=== PATIENT | female | born 1970 | race Caucasian/White ===

== ENCOUNTER 2020-07-24 13:21 | Emergency (ER) | payer BC, SELFPAY ==
--- NOTE | ~2020-07-24 | US_ITS ---
EXAMINATION: US ABDOMEN LIMITED CLINICAL INFORMATION: Right upper quadrant pain. Evaluate for acute cholecystitis.. COMPARISON: None TECHNIQUE: Real-time imaging of the right upper quadrant abdominal viscera. FINDINGS: PANCREAS: Not well visualized due to bowel gas. LIVER: The liver is normal in size. The liver contour is normal. Liver echotexture is slightly reduced. No focal hepatic lesion. There is no intrahepatic biliary duct dilatation seen. GALLBLADDER: The gallbladder is slightly distended measuring 10.5 x 4 x 4.8 cm in dimension. No gallstones are seen. The gallbladder wall does not appear thickened measuring 0.3 cm. No gallbladder wall edema or pericholecystic fluid is seen. The special procedures technologist reports the patient is tender over the gallbladder. COMMON BILE DUCT: Normal in caliber measuring 0.6 cm in diameter. RIGHT KIDNEY: Normal. No hydronephrosis. No renal calculi or focal parenchymal lesions. The kidney measures 10.5 cm in maximum dimension. FREE FLUID: None. US/US abdomen limited IMPRESSION: Slightly distended gallbladder. No gallstone seen. The special procedures technologist reports the patient is tender over the gallbladder. If there is clinical suspicion of acalculous cholecystitis, HIDA scan would be recommended. Slightly echogenic liver probably representing fatty infiltration.
--- NOTE | ~2020-07-24 | CT_ITS ---
EXAMINATION: CT ABDOMEN AND PELVIS WITHOUT CONTRAST CLINICAL INFORMATION: Right flank hematuria. COMPARISON: Ultrasound abdomen 07/24/2020 TECHNIQUE: Multidetector volumetric imaging was performed from the superior aspect of the liver through the pubic symphysis. Sagittal and coronal reformatted images were obtained on the technologist's workstation. This CT examination was performed using dose optimization techniques as appropriate, variously including the following: *Automated exposure control *Adjustment of mA and/or kV according to patient size (this includes techniques or standardized protocols for targeted exams where dose is matched to indication/reason for exam; i.e. extremities or head) *Use of iterative reconstruction technique DLP: 752 mGy-cm FINDINGS: LUNG BASES: The visualized lung bases are unremarkable. LIVER, GALLBLADDER, AND BILIARY TREE: The liver is normal in size, shape, and attenuation. There is a 1.7 cm cyst hepatic lobe. No additional lesions seen. There is no intrahepatic ductal dilatation. The gallbladder is distended with a 7 mm radiopaque dependent radiopaque gallstone. No wall thickening seen. No pericholecystic fluid collection. PANCREAS: Unremarkable. SPLEEN: Unremarkable. ADRENAL GLANDS: Unremarkable. KIDNEYS AND URETERS: The kidneys are normal in size, shape, and attenuation. No hydronephrosis, hydroureter, or calculi seen. No perinephric stranding. BLADDER: Unremarkable. GASTROINTESTINAL TRACT: There is scattered stool and gas seen throughout the colon without distention. The small bowel loops and appendix appears normal. The stomach is nondistended. ABDOMINAL WALL: No significant hernia is appreciated. LYMPH NODES: Normal. VASCULAR: Unremarkable. PELVIC VISCERA: The uterus is midline. No adnexal mass or free fluid seen. There are bilateral small lung inguinal lymph nodes visualized. The largest lymph node right inguinal region measuring 1.4 x 1.3 cm OSSEOUS STRUCTURES: There is mild degenerative changes with vacuum disc phenomena at T12-L1 and T10-T11 disc level. Anterior superior endplate osteophyte is seen at L1 vertebra. CT/CT abdomen pelvis wo IV con IMPRESSION: Cholelithiasis without wall thickening. No gallstone was seen on ultrasound earlier today. Mild constipation. Normal appendix.
[2020-07-24 13:50] VITALS: BP 189/91; PULSE 88; RESP 18; TEMP 36.8; O2SAT 98; BMI 41.3
--- NOTE | 2020-07-24 16:04 | ECG_ITS ---
Test Reason : ABDOMINAL PAIN Blood Pressure : / mmHG Vent. Rate : 070 BPM Atrial Rate : 070 BPM P-R Int : 158 ms QRS Dur : 070 ms QT Int : 438 ms P-R-T Axes : 040 036 018 degrees QTc Int : 473 ms Normal sinus rhythm Possible Left atrial enlargement Borderline ECG No previous ECGs available Referred By: Traci Shields Electronically Signed By:ALEXA JOHNSON MD
--- NOTE | 2020-07-24 16:16 | ED_ITS ---
HPI - Abdominal Pain General Chief Complaint: Abdominal Pain Stated Complaint: ABD PAIN Time Seen by Provider: 07/24/20 15:56 Source: patient Mode of arrival: ambulatory Limitations: no limitations History of Present Illness HPI narrative: 50-year-old female here with complaints of right upper abdominal pain intermittent for the last 2 weeks also complaining of some epigastric pain which is worsened with eating. Having some nausea but denies vomiting. Pain radiates to the right flank and right shoulder at times. No diarrhea. No urinary symptoms, fevers or chills. No shortness of breath or chest pain. Sta rted Prilosec to for presumed reflux with continued pain. Does have a history of using p.r.n. Motrin quite frequently at home for chronic shoulder pain. Related Data Previous Rx's Medication Instructions Recorded ondansetron 4 mg PO Q6H PRN #10 tab 07/24/20 oxycodone 5 mg PO Q6H PRN #10 tab 07/24/20 Allergies Allergy/AdvReac Type Severity Reaction Status Date / Time No Known Allergies Allergy Verified 07/24/20 16:04 Review of Systems Review of Systems Yes all other systems are reviewed and are negative Constitutional: Reports no additional constitutional complaints, Denies body ache(s), Denies chills, Denies fever(s), Denies headache(s) and Denies weakness Eyes: Reports no additional eye complaints and Denies change in vision Reports system reviewed and no additional complaints, except as documented, Denies dizziness, Denies headache(s), Denies nasal congestion, Denies nasal discharge and Denies neck pain Cardiovascular: Reports no additional cardiovascular complaints, Denies chest pain, Denies leg edema and Denies dyspnea Respiratory: Reports no additional respiratory complaints, Denies cough and Denies dyspnea Gastrointestinal: Reports no additional gastrointestinal complaints, Reports abdominal pain, Denies diarrhea, Reports nausea and Denies vomiting Genitourinary: Reports no additional female genitourinary complaints and Denies urinary incontinence Musculoskeletal: Reports no additional musculoskeletal complaints, Reports back pain, Denies arthralgias, Denies joint swelling, Denies neck pain, Denies numbness and Denies tingling Skin/Breast: Reports system reviewed and no additional complaints, except as docu and Denies rash Reports system reviewed and no additional complaints, except as documented, Denies Abnormal speech present, Denies dizziness, Denies headache(s), Denies nu mbness, Denies tingling and Denies weakness Physical Exam Vital Signs: Vital Signs: Last Vital Signs Temp 97.9 F 07/24/20 19:50 Pulse 69 07/24/20 19:50 Resp 20 07/24/20 19:50 BP 132/97 H 07/24/20 19:50 Pulse Ox 97 07/24/20 19:50 Body Mass Index 41.3 Const: General: cooperative, healthy appearing, comfortable and no acute distress Orientation/consciousness: patient oriented x3 Limitations: no limitations HENMT: Head: Yes normal to inspection Ears: hearing grossly normal bilaterally General nose exam: Normal external nose present Face and sinus : Yes normal facial exam Mouth: Normal oral and palatal mucosa present Throat: Yes posterior oropharynx normal Eyes: General: appearance normal, both eyes and all related structures Pupils: Equal, round and reactive pupils present Neck: Neck: Yes normal visual inspection Chest: Chest palpation & inspection: normal inspection of the chest Resp: Effort & Inspection: normal respiratory effort Auscultation: clear to auscultation bilaterally Cardio: Rate: regular rate Rhythm: regular rhythm Peripheral pulses: Peripheral pulses 2+ throughout GI: Inspection: Yes normal to inspection Palpation (GI): Soft to palpation, Tenderness to palpation present (GI) (Moderate right upper quadrant and epigastric tenderness) with no rebound tenderness and no guarding Ausculta tion: normal bowel sounds : General: Yes no CVA tenderness Back/Spine/Pelvis: Back: no CVA tenderness Thoracic/Lumbar Spine: thoracic and lumbar spine normal to inspection Skin: General skin exam: no rashes or lesions noted Neuro: General: patient oriented x3, no focal motor deficits and normal sensation to monofilament Cranial nerves: Yes Equal, round and reactive pupils present Cognition (Neuro): normal cognition Speech: No Abnormal speech present Gait exam (Neuro): Normal gait present Motor exam (neuro): 5/5 motor strength present throughout Extrem: General: Yes normal to inspection, Yes no pedal edema and Yes no calf tenderness Course Course Course Narrative: 50-year-old female here with complaints of intermittent right upper quadrant pain with radiation to the right back and shoulder with associated nausea and epigastric pain for the last 2 weeks. Started a PPI with continued symptoms. On exam does have some tenderness in the right upper quadrant epigastric area. No overt CVA tenderness. No urinary symptoms are reported. Will check labs, UA, abdominal ultrasound. Will give IV morphine and Zofran and reassessed. 1800-ultrasound shows slightly distended gallbladder. No gallstones seen. Con tinued pain with urine that shows microscopic hematuria. Will do CT abdomen and pelvis 2014-CT shows a distended gallbladder with a 7 mm radiopaque gallstones. No wall thickening seen no pericholecystic fluid. No evidence of acute cholecystitis. The patient's pain is well controlled. She has no vomiting is tolerating p.o.. Labs including LFTs normal. I reviewed the findings with her. Recommend low-fat diet and follow-up with the surgery. Reviewed worrisome signs and symptoms of when to return to the emergency department such as severe abdominal pain, to a more vomiting episodes, fever. Comfortable discharge home. MDM - Abdominal Pain MDM Narrative Medical decision making narrative: Cholecystitis Differential Diagnosis Differential diagnosis: Likely calculus of kidney, gastritis and pancreatitis Medical Records Attestation: I reviewed the patient's medical records. Lab Data Attestation: I reviewed the patient's lab results. Result diagrams: 07/24/20 16:21 07/24/20 16:21 Labs: Lab Results 07/24/20 07/24/20 07/24/20 Range/Units 16:21 16:21 16:21 WBC 11.4 H (4.8-10.8) X10*3/uL RBC 4.43 (4.20-5.50) X10*6/uL Hgb 13.2 (12.0-16.0) g/dl Hct 39.8 (37-47) % MCV 89.8 (80-98) fL MCH 29.8 (27.0-33.0) pg MCHC 33.2 (31.0-35.0) g/dl RDW 11.9 (11.0-16.0) % Plt Count 210 (160-400) X10*3/uL MPV 11.8 (9.4-12.3) fL Immature Gran % (Auto) 0.2 (0.0-0.4) % Neut % (Auto) 56.6 (45-73) % Lymph % (Auto) 31.2 (20-40) % Young % (Auto) 7.7 (2-11) % Eos % (Auto) 3.5 (0-4) % Baso % (Auto) 0.8 (0-2) % Lymph # (Auto) 3.5 (1.2-4.9) X10*3/uL Young # (Auto) 0.9 (0.1-1.2) X10*3/uL Eos # (Auto) 0.4 (0.0-0.4) X10*3/uL Baso # (Auto) 0.1 (0.0-0.2) X10*3/uL Abs Immat Gran (auto) 0.02 (0.00-0.03) X10*3/uL Absolute Neuts (auto) 6.4 (2.0-8.3) X10*3/uL Absolute Nucleated RBC 0.000 (0.0-0.012) X10*3/uL Nucleated RBC % (auto) 0.0 (0.0-0.2) /100WBC Sodium 142 (135-145) mmol/L Potassium 4.5 (3.3-5.1) mmol/L Chloride 107 (96-108) mmol/L Carbon Dioxide 28 (22-29) mmol/L Anion Gap 12 (12-20) BUN 19 H (9-16) mg/dL Creatinine 1.12 (0.5-1.4) mg/dL Estim Creat Clear Calc 59.2 Estimated GFR 51 Random Glucose 88 (60-115) mg/dL Calcium 9.4 (8.4-10.2) mg/dL Total Bilirubin 0.5 (0.0-1.0) mg/dL Direct Bilirubin < 0.2 (0.0-0.5) mg/dL AST 21 (5-31) U/L ALT 21 (0-31) U/L Alkaline Phosphatase 71 (39-117) U/L Total Protein 6.8 (6.5-8.0) g/dL Albumin 4.3 (3.5-5.0) g/dL Lipase 22 (8-78) U/L Urine Color YELLOW Urine Appearance CLEAR Urine pH 7.0 (5.0-8.0) Ur Specific [place] 1.020 (1.005-1.025) Urine Protein NEG (NEG-TRACE) MG/DL Urine Glucose (UA) NEG (NEG) MG/DL Urine Ketones NEG (NEG) MG/DL Urine Blood 1+ H (NEG) Urine Nitrite NEG (NEG) Ur Leukocyte Esterase NEG (NEG) Urine RBC 10-14 H (0) /HPF Urine WBC 0-2 (0-4) /HPF Ur Squamous Epith Cells 2+ /LPF Urine Bacteria 1+ /LPF Imaging Data US - abdomen: Attestation: I personally reviewed and interpreted this imaging study as follows: Radiologist's impression: IMPRESSION: Slightly distended gallbladder. No gallstone seen. The pathology technologist reports the patient is tender over the gallbladder. If there is clinical suspicion of acalculous cholecystitis, HIDA scan would be recommended. Slightly echogenic liver probably representing fatty infiltration. CT scan - abdomen: Attestation: I personally reviewed and interpreted this imaging study as follows: Radiologist's impression: EXAMINATION: CT ABDOMEN AND PELVIS WITHOUT CONTRAST CLINICAL INFORMATION: Right flank hematuria. COMPARISON: Ultrasound abdomen 07/24/2020 TECHNIQUE: Multidetector volumetric imaging was performed from the superior aspect of the liver through the pubic symphysis. Sagittal and coronal reformatted images were obtained on the technologist's workstation. This CT examination was performed using dose optimization techniques as appropriate, variously including the following: *Automated exposure control *Adjustment of mA and/or kV according to patient size (this includes techniques or standardized protocols for targeted exams where dose is matched to indication/reason for exam; i.e. extremities or head) *Use of iterative reconstruction technique DLP: 752 mGy-cm FINDINGS: LUNG BASES: The visualized lung bases are unremarkable. LIVER, GALLBLADDER, AND BILIARY TREE: The liver is normal in size, shape, and attenuation. There is a 1.7 cm cyst hepatic lobe. No additional lesions seen. There is no intrahepatic ductal dilatation. The gallbladder is distended with a 7 mm radiopaque dependent radiopaque gallstone. No wall thickening seen. No pericholecystic fluid collection. PANCREAS: Unremarkable. SPLEEN: Unremarkable. ADRENAL GLANDS: Unremarkable. KIDNEYS AND URETERS: The kidneys are normal in size, shape, and attenuation. No hydronephrosis, hydroureter, or calculi seen. No perinephric stranding. BLADDER: Unremarkable. GASTROINTESTINAL TRACT: There is scattered stool and gas seen throughout the colon without distention. The small bowel loops and appendix appears normal. The stomach is nondistended. ABDOMINAL WALL: No significant hernia is appreciated. LYMPH NODES: Normal. VASCULAR: Unremarkable. PELVIC VISCERA: The uterus is midline. No adnexal mass or free fluid seen. There are bilateral small lung inguinal lymph nodes visualized. The largest lymph node right inguinal region measuring 1.4 x 1.3 cm OSSEOUS STRUCTURES: There is mild degenerative changes with vacuum disc phenomena at T12-L1 and T10-T11 disc level. Anterior superior endplate osteophyte is seen at L1 vertebra. CT/CT abdomen pelvis wo con IMPRESSION: Cholelithiasis without wall thickening. No gallstone was seen on ultrasound earlier today. Mild constipation. Normal appendix. Discharge Plan Discharge Clinical Impression: Cholelithiases Patient Disposition: Home, Self-Care Instructions: Gallstones (ED) Additional Instructions: Very low-fat diet Follow-up with surgery tomorrow or the next day Prescriptions: New oxycodone 5 mg tablet 5 mg PO Q6H PRN (Reason: pain) Qty: 10 RF: 0 ondansetron 4 mg tablet,disintegrating 4 mg PO Q6H PRN (Reason: nausea and vomiting) Qty: 10 RF: 0 Referrals: David Hoffman MD [Physician] - 2 days Interventions: ED Discharge Assessment Last Done: 07/24/20 20:04 Discharge Date/Time: 07/24/20 20:07 [facility] Past Medical History Attestation statement: The following information was validated with the patient. Source: old records reviewed and nursing notes reviewed Social History Social History Alcohol intake: never Patient Tobacco Use Status: Never used Tobacco Use of substances other than those prescribed or required for medical reasons: No Advance Directives: No Advance Directives Information Provided: No Patient : No
[2020-07-24 16:24] VITALS: RESP 16
[2020-07-24] MEDS: Morphine Sulfate 2 MG/ML CARTRIDGE IVPUSH (16:24)
[2020-07-24] MEDS: ondansetron HCL 4 MG/2 ML VIAL IVPUSH (16:24)
[2020-07-24 16:26] LABS: MANUAL DIFF FLAG NO
[2020-07-24 16:27] LABS: Basophils Absolute Auto 0.1 X10*3/uL (0.0-0.2); Basophils Percent Auto 0.8 % (0-2); Eosinophils Absolute Auto 0.4 X10*3/uL (0.0-0.4); Eosinophils Percent Auto 3.5 % (0-4); Hematocrit 39.8 % (37-47); Hemoglobin 13.2 g/dl (12.0-16.0); Imm Gran Abs Auto 0.02 X10*3/uL (0.00-0.03); Imm Gran Pct Auto 0.2 % (0.0-0.4); Lymphocytes Absolute Auto 3.5 X10*3/uL (1.2-4.9); Lymphocytes Percent Auto 31.2 % (20-40); Mean Corpuscular HGB Conc 33.2 g/dl (31.0-35.0); Mean Corpuscular Hemoglobin 29.8 pg (27.0-33.0); Mean Corpuscular Volume 89.8 fL (80-98); Mean Platelet Volume 11.8 fL (9.4-12.3); Monocytes Absolute Auto 0.9 X10*3/uL (0.1-1.2); Monocytes Percent Auto 7.7 % (2-11); Neutrophils Absolute Auto 6.4 X10*3/uL (2.0-8.3); Neutrophils Percent Auto 56.6 % (45-73); Platelet Count 210 X10*3/uL (160-400); Red Blood Count 4.43 X10*6/uL (4.20-5.50); Red Cell Distribution Width 11.9 % (11.0-16.0); White Blood Count 11.4 X10*3/uL (4.8-10.8)
[2020-07-24 16:34] LABS: Glucose Urine UA NEG (NEG); Leukocyte Esterase Urine NEG (NEG); Nitrite Urine NEG (NEG); Urine Blood 1+ (NEG); Urine Ketones NEG (NEG); Urine Protein NEG (NEG-TRACE)
[2020-07-24 16:35] LABS: Appearance Urine CLEAR; Color Urine YELLOW
[2020-07-24 16:51] LABS: Bacteria Urine 1+ /LPF; Squamous Epithelial Cell Urine 2+ /LPF; WBC Urine 0-2 /HPF (0-4)
[2020-07-24 17:04] LABS: Alanine Aminotransferase 21 U/L (0-31); Albumin Level 4.3 g/dL (3.5-5.0); Alkaline Phosphatase 71 U/L (39-117); Anion Gap 12 (12-20); Aspartate Amino Transferase 21 U/L (5-31); Bilirubin Direct < 0.2 mg/dL (0.0-0.5); Bilirubin Total 0.5 mg/dL (0.0-1.0); Blood Urea Nitrogen 19 mg/dL (9-16); Calcium 9.4 mg/dL (8.4-10.2); Carbon Dioxide 28 mmol/L (22-29); Chloride 107 mmol/L (96-108); Creatinine Clr Calc Pharmacy 59.2; Estimated Glomerular Filt Rate 51; Glucose Random 88 mg/dL (60-115); Lipase 22 U/L (8-78); Potassium 4.5 mmol/L (3.3-5.1); Sodium 142 mmol/L (135-145); Total Protein 6.8 g/dL (6.5-8.0)
[2020-07-24 17:32] VITALS: RESP 18
[2020-07-24] MEDS: Morphine Sulfate 4 MG/ML CARTRIDGE IVPUSH (17:32)
[2020-07-24 19:50] VITALS: BP 132/97; PULSE 69; RESP 20; TEMP 36.6; O2SAT 97
== END 2020-07-24 20:07 | disposition home or self-care (01) ==
PROVIDERS: Nurse Practitioner Family; Emergency Provider Emergency Medicine; PCP Internal Medicine
DX: K80.20 Calculus of gallbladder without cholecystitis without obstruction (principal); R10.13 Epigastric pain
CPT/HCPCS: 36415; 74176; 76705; 80048; 80076; 81001; 83690; 85025; 93005; 96374; 96375; 96376; 99285; J2270; J2405

== ENCOUNTER → 2020-08-02 14:14 | Outpatient (BNVA) | payer BC, SELFPAY | PROVIDERS: PCP Internal Medicine; Visit Provider Surgery ==

== ENCOUNTER 2020-08-29 06:25 | Emergency (ER) | payer BC, SELFPAY ==
--- NOTE | 2020-08-29 | ECG_ITS ---
Test Reason : CHEST PAIN Blood Pressure : / mmHG Vent. Rate : 090 BPM Atrial Rate : 090 BPM P-R Int : 150 ms QRS Dur : 072 ms QT Int : 392 ms P-R-T Axes : 034 030 042 degrees QTc Int : 479 ms Sinus rhythm with frequent Premature ventricular complexes Possible Left atrial enlargement Borderline ECG When compared with ECG of 24-JUL-2020 18:00, Premature ventricular complexes are now Present Referred By: Generic ED Physician Electronically Signed By:Cooper Patiño
--- NOTE | ~2020-08-29 | XR_ITS ---
EXAMINATION: XR CHEST CLINICAL INFORMATION: Chest pain. COMPARISON: None TECHNIQUE: Frontal view of the chest was obtained. FINDINGS: The lungs are well-expanded and clear. The heart size and pulmonary vascularity is normal. No gross bony abnormality seen. XR/XR chest 1V IMPRESSION: Unremarkable chest exam.
[2020-08-29 06:41] VITALS: BP 147/62; PULSE 54; RESP 18; TEMP 36.9; O2SAT 96; BMI 41.5
--- NOTE | 2020-08-29 06:55 | ED.ARRPALP ---
HPI - Arrhythmia/Palpitations General Chief Complaint: ETOH/Substance Use Stated Complaint: severe chest pain, SoB Time Seen by Provider: 08/29/20 06:53 Source: patient Mode of arrival: ambulatory Limitations: no limitations History of Present Illness HPI narrative: 50 yo female was to have surgery back in July - found to be in bigeminy in preop has been seeing [facility] cardiology since then to find out the cause of her PVCs - finished her holter monitor today, has not had ECHO or sress test yet, this AM around 5 developed L sided pleuritic shoulder pain and dizziness - she took 2 aspirin and came to the hospital currently feels much better, is on no home medications complaint: rapid heart beat, heart racing and palpitations Onset (ago): hour(s) (2) Duration: now resolved Severity: moderate Context: occurred during rest Arrhythmia history: other (frequent PVCs) Associated symptoms: chest pain, shortness of breath and near-syncope Related Data Previous Rx's Medication Instructions Recorded ondansetron 4 mg PO Q6H PRN #10 tab 07/24/20 oxycodone 5 mg PO Q6H PRN #10 tab 07/24/20 Allergies Allergy/AdvReac Type Severity Reaction Status Date / Time No Known Allergies Allergy Verified 08/02/20 14:30 Review of Systems Review of Systems: Constitutional : No Weight loss, No Fever, No Chills ENT/Mouth : No sore throat, No Rhinorrhea Eyes: No Eye Pain, No Swelling Cardiovascular : pos Chest Pain, pos SOB, no Dyspnea on Exertion, No Orthopnea, No Edema, pos Palpitations Respiratory : No Cough, No Sputum Gastrointestinal : pos Nausea, No Vomiting, No Diarrhea, No abdominal Pain, No Hematochezia, No Melena Genitourinary : No Dysuria, No Urinary Frequency Musculoskeletal : No joint pain, No Myalgias, No Joint Swelling Skin : No Skin Lesions, No rash Neuro : No Weakness, No Numbness, pos Dizziness, No Headache Psych : No Anxiety/Panic, No Depression Heme/Lymph: No Bruising, No Lymphadenopathy Endocrine : No Polyuria, No Polydipsia All other systems reviewed and are negative PMFSH Past Medical History Attestation statement: The following information was validated with the patient. Medical History Gallstones Morbid obesity Surgical History History of arthroplasty of right shoulder History of bunionectomy History of eye surgery Family History Family History (Updated 08/02/20 @ 15:45 by Rudy Gibson RN) Unknown Unknown family medical history Social History Social History Alcohol intake: never Patient Tobacco Use Status: Former Tobacco user Advance Directives: Yes Advance Directives Information Provided: Yes Advance Directives on File: No Patient : No Physical Exam Vital Signs: Vital Signs: Last Vital Signs Temp 98.4 F 08/29/20 06:41 Pulse 54 08/29/20 06:41 Resp 18 08/29/20 06:41 BP 147/62 H 08/29/20 06:41 Pulse Ox 96 08/29/20 06:41 Body Mass Index 41.5 Appearance: Alert. Oriented X3. No acute distress. Eyes: Pupils equal, round and reactive to light. ENT: Pharynx normal. Neck: Normal inspection. Neck supple. CVS: Normal heart rate and rhythm. Pulses normal. Respiratory: No respiratory distress. Breath sounds normal. Abdomen: Soft and non-tender. Skin: Skin warm and dry. Normal skin color. Normal skin turgor. Extremities: No lower extremity edema. No calf ttp Neuro: Oriented X 3. No motor deficit. No sensory deficit. Course Course Course Narrative: ddimer under the upper limit of normal workup negative in the ED has planned ECHO and stress test with her [facility] creative services designer - will hold bblocker as at this time she is intermittently perfusing the PVCs and her HR is in the 70s MDM - Arrhythmia/Palpitations MDM Narrative Medical decision making narrative: 50 yo female was to have surgery back in July - found to be in bigeminy in preop has been seeing [facility] cardiology since then to find out the cause of her PVCs - finished her holter monitor today, has not had ECHO or sress test yet, this AM around 5 developed L sided pleuritic shoulder pain and dizziness at this time will need troponin x 2, ddimer, CXR and observation states they did not start her on bblocker until a cause for her PVCs was found but she is quite symptomatic from them and might benefit from low dose bblocker her heart score is 3 Lab Data Result diagrams: 08/29/20 07:11 08/29/20 07:11 Labs: Lab Results 08/29/20 08/29/20 08/29/20 Range/Units 07:11 07:11 07:11 WBC 9.5 (4.8-10.8) X10*3/uL RBC 4.50 (4.20-5.50) X10*6/uL Hgb 13.3 (12.0-16.0) g/dl Hct 40.2 (37-47) % MCV 89.3 (80-98) fL MCH 29.6 (27.0-33.0) pg MCHC 33.1 (31.0-35.0) g/dl RDW 11.6 (11.0-16.0) % Plt Count 200 (160-400) X10*3/uL MPV 11.5 (9.4-12.3) fL Immature Gran % (Auto) 0.4 (0.0-0.4) % Neut % (Auto) 59.4 (45-73) % Lymph % (Auto) 26.1 (20-40) % [place] % (Auto) 9.5 (2-11) % Eos % (Auto) 4.1 H (0-4) % Baso % (Auto) 0.5 (0-2) % Lymph # (Auto) 2.5 (1.2-4.9) X10*3/uL [place] # (Auto) 0.9 (0.1-1.2) X10*3/uL Eos # (Auto) 0.4 (0.0-0.4) X10*3/uL Baso # (Auto) 0.1 (0.0-0.2) X10*3/uL Abs Immat Gran (auto) 0.04 H (0.00-0.03) X10*3/uL Absolute Neuts (auto) 5.7 (2.0-8.3) X10*3/uL Absolute Nucleated RBC 0.000 (0.0-0.012) X10*3/uL Nucleated RBC % (auto) 0.0 (0.0-0.2) /100WBC D-Dimer 222 NG/ML Sodium 141 (135-145) mmol/L Potassium 4.9 (3.3-5.1) mmol/L Chloride 107 (96-108) mmol/L Carbon Dioxide 27 (22-29) mmol/L Anion Gap 12 (12-20) BUN 24 H (9-16) mg/dL Creatinine 0.89 (0.5-1.4) mg/dL Estim Creat Clear Calc 74.7 Estimated GFR > 60 Random Glucose 118 H (60-115) mg/dL Calcium 9.6 (8.4-10.2) mg/dL Magnesium 2.0 (1.6-2.6) mg/dL Total Bilirubin 0.4 (0.0-1.0) mg/dL Direct Bilirubin 0.2 (0.0-0.5) mg/dL AST 20 (5-31) U/L ALT 26 (0-31) U/L Alkaline Phosphatase 60 (39-117) U/L Troponin I High Sens (<3.5-17.0) ng/L Total Protein 6.8 (6.5-8.0) g/dL Albumin 4.3 (3.5-5.0) g/dL Lipase 24 (8-78) U/L 08/29/20 08/29/20 Range/Units 07:11 09:45 WBC (4.8-10.8) X10*3/uL RBC (4.20-5.50) X10*6/uL Hgb (12.0-16.0) g/dl Hct (37-47) % MCV (80-98) fL MCH (27.0-33.0) pg MCHC (31.0-35.0) g/dl RDW (11.0-16.0) % Plt Count (160-400) X10*3/uL MPV (9.4-12.3) fL Immature Gran % (Auto) (0.0-0.4) % Neut % (Auto) (45-73) % Lymph % (Auto) (20-40) % [place] % (Auto) (2-11) % Eos % (Auto) (0-4) % Baso % (Auto) (0-2) % Lymph # (Auto) (1.2-4.9) X10*3/uL [place] # (Auto) (0.1-1.2) X10*3/uL Eos # (Auto) (0.0-0.4) X10*3/uL Baso # (Auto) (0.0-0.2) X10*3/uL Abs Immat Gran (auto) (0.00-0.03) X10*3/uL Absolute Neuts (auto) (2.0-8.3) X10*3/uL Absolute Nucleated RBC (0.0-0.012) X10*3/uL Nucleated RBC % (auto) (0.0-0.2) /100WBC D-Dimer NG/ML Sodium (135-145) mmol/L Potassium (3.3-5.1) mmol/L Chloride (96-108) mmol/L Carbon Dioxide (22-29) mmol/L Anion Gap (12-20) BUN (9-16) mg/dL Creatinine (0.5-1.4) mg/dL Estim Creat Clear Calc Estimated GFR Random Glucose (60-115) mg/dL Calcium (8.4-10.2) mg/dL Magnesium (1.6-2.6) mg/dL Total Bilirubin (0.0-1.0) mg/dL Direct Bilirubin (0.0-0.5) mg/dL AST (5-31) U/L ALT (0-31) U/L Alkaline Phosphatase (39-117) U/L Troponin I High Sens < 3.5 < 3.5 (<3.5-17.0) ng/L Total Protein (6.5-8.0) g/dL Albumin (3.5-5.0) g/dL Lipase (8-78) U/L ECG Data Attestation: I personally reviewed and interpreted this ECG as follows: ECG interpretation date: 08/29/20 ECG interpretation time: 06:56 Interpretation: Rate: 90 Rhythm: NSR with frequent PVCs some couplets [place]: normal Normal P waves. Normal BENNY. Normal QRS complex. ST T wave : normal no JESSICA qTC: normal prior studies: no acute ischemia The study has been interpreted contemporaneously by me. . Scores Heart Score History: -1- moderately suspicious ECG: -0- normal Age: -1- >45 - <65 Risk factory: -1- 1 or 2 risk factors Troponin: -0- < or = normal limit Score: 3 Risk: 1.7% Discharge Plan Discharge Clinical Impression: Chest pain, PVC (premature ventricular contraction) Patient Disposition: Home, Self-Care Instructions: Chest Pain (ED), Premature Ventricular Contractions (ED) Additional Instructions: return to ED for any worsening symptoms or concerns call your creative services designer today negative troponin x 2, negative ddimer Prescriptions: No Action oxycodone 5 mg tablet 5 mg PO Q6H PRN (Reason: pain) Qty: 10 RF: 0 ondansetron 4 mg tablet,disintegrating 4 mg PO Q6H PRN (Reason: nausea and vomiting) Qty: 10 RF: 0 Stand Alone Forms: Work/School Release
[2020-08-29 07:17] LABS: MANUAL DIFF FLAG NO
[2020-08-29 07:19] LABS: Basophils Absolute Auto 0.1 X10*3/uL (0.0-0.2); Basophils Percent Auto 0.5 % (0-2); Eosinophils Absolute Auto 0.4 X10*3/uL (0.0-0.4); Eosinophils Percent Auto 4.1 % (0-4); Hematocrit 40.2 % (37-47); Hemoglobin 13.3 g/dl (12.0-16.0); Imm Gran Abs Auto 0.04 X10*3/uL (0.00-0.03); Imm Gran Pct Auto 0.4 % (0.0-0.4); Lymphocytes Absolute Auto 2.5 X10*3/uL (1.2-4.9); Lymphocytes Percent Auto 26.1 % (20-40); Mean Corpuscular HGB Conc 33.1 g/dl (31.0-35.0); Mean Corpuscular Hemoglobin 29.6 pg (27.0-33.0); Mean Corpuscular Volume 89.3 fL (80-98); Mean Platelet Volume 11.5 fL (9.4-12.3); Monocytes Absolute Auto 0.9 X10*3/uL (0.1-1.2); Monocytes Percent Auto 9.5 % (2-11); Neutrophils Absolute Auto 5.7 X10*3/uL (2.0-8.3); Neutrophils Percent Auto 59.4 % (45-73); Platelet Count 200 X10*3/uL (160-400); Red Cell Distribution Width 11.6 % (11.0-16.0); White Blood Count 9.5 X10*3/uL (4.8-10.8)
[2020-08-29 07:47] LABS: Alanine Aminotransferase 26 U/L (0-31); Albumin Level 4.3 g/dL (3.5-5.0); Alkaline Phosphatase 60 U/L (39-117); Anion Gap 12 (12-20); Aspartate Amino Transferase 20 U/L (5-31); Bilirubin Direct 0.2 mg/dL (0.0-0.5); Bilirubin Total 0.4 mg/dL (0.0-1.0); Blood Urea Nitrogen 24 mg/dL (9-16); Calcium 9.6 mg/dL (8.4-10.2); Carbon Dioxide 27 mmol/L (22-29); Chloride 107 mmol/L (96-108); Creatinine Clr Calc Pharmacy 74.7; D Dimer 222 NG/ML; Estimated Glomerular Filt Rate > 60; Glucose Random 118 mg/dL (60-115); Lipase 24 U/L (8-78); Potassium 4.9 mmol/L (3.3-5.1); Sodium 141 mmol/L (135-145); Total Protein 6.8 g/dL (6.5-8.0)
[2020-08-29 07:53] LABS: Troponin-I High Sensitivity < 3.5 ng/L (<3.5-17.0)
[2020-08-29 10:21] LABS: Troponin-I High Sensitivity < 3.5 ng/L (<3.5-17.0)
== END 2020-08-29 10:55 | disposition home or self-care (01) ==
PROVIDERS: Emergency Provider Emergency Medicine; PCP Internal Medicine
DX: R07.9 Chest pain, unspecified (principal); I49.3 Ventricular premature depolarization; Z87.891 Personal history of nicotine dependence; Z79.899 Other long term (current) drug therapy
CPT/HCPCS: 36415; 71045; 80048; 80076; 83690; 83735; 84484; 85025; 85379; 93005; 99283

== ENCOUNTER 2020-12-15 01:49 | Emergency (ER) | payer OTHER, SELFPAY ==
--- NOTE | 2020-12-15 | ECG_ITS ---
Test Reason : CHEST PAIN Blood Pressure : / mmHG Vent. Rate : 077 BPM Atrial Rate : 077 BPM P-R Int : 146 ms QRS Dur : 078 ms QT Int : 428 ms P-R-T Axes : 032 028 057 degrees QTc Int : 484 ms Sinus rhythm with frequent Premature ventricular complexes trigeminy Possible Left atrial enlargement RSR' or QR pattern in V1 suggests right ventricular conduction delay Abnormal ECG No significant changes seen Referred By: Generic ED Physician Electronically Signed By:MABLE GRIFFITH MD
--- NOTE | ~2020-12-15 | XR_ITS ---
EXAMINATION: XR CHEST CLINICAL INFORMATION: Chest tightness COMPARISON: 08/29/2020 TECHNIQUE: Frontal view of the chest was obtained. FINDINGS: The lungs are clear with no focal consolidation. No evidence of pneumothorax, pulmonary edema, or pleural effusions. The cardiomediastinal contour is unremarkable. No acute osseous findings are seen. XR/XR chest 1V IMPRESSION: No acute cardiopulmonary findings.
[2020-12-15 02:08] VITALS: BP 156/62; PULSE 54; RESP 18; TEMP 36.3; O2SAT 94; BMI 43.9
[2020-12-15 03:05] VITALS: BP 142/88; PULSE 74; RESP 18; O2SAT 97
[2020-12-15 03:17] LABS: MANUAL DIFF FLAG NO
[2020-12-15 03:19] LABS: Basophils Absolute Auto 0.1 X10*3/uL (0.0-0.2); Basophils Percent Auto 0.6 % (0-2); Eosinophils Absolute Auto 0.4 X10*3/uL (0.0-0.4); Eosinophils Percent Auto 3.2 % (0-4); Hematocrit 42.4 % (37-47); Hemoglobin 13.9 g/dl (12.0-16.0); Imm Gran Abs Auto 0.03 X10*3/uL (0.00-0.03); Imm Gran Pct Auto 0.3 % (0.0-0.4); Lymphocytes Absolute Auto 3.7 X10*3/uL (1.2-4.9); Lymphocytes Percent Auto 31.1 % (20-40); Mean Corpuscular HGB Conc 32.8 g/dl (31.0-35.0); Mean Corpuscular Hemoglobin 29.4 pg (27.0-33.0); Mean Corpuscular Volume 89.6 fL (80-98); Mean Platelet Volume 11.9 fL (9.4-12.3); Monocytes Percent Auto 8.6 % (2-11); Neutrophils Absolute Auto 6.7 X10*3/uL (2.0-8.3); Neutrophils Percent Auto 56.2 % (45-73); Platelet Count 197 X10*3/uL (160-400); Red Blood Count 4.73 X10*6/uL (4.20-5.50); Red Cell Distribution Width 12.4 % (11.0-16.0); White Blood Count 11.9 X10*3/uL (4.8-10.8)
[2020-12-15 03:35] LABS: Alanine Aminotransferase 39 U/L (0-31); Albumin Level 4.3 g/dL (3.5-5.0); Alkaline Phosphatase 80 U/L (39-117); Anion Gap 12 (12-20); Aspartate Amino Transferase 19 U/L (5-31); Bilirubin Total 0.3 mg/dL (0.0-1.0); Blood Urea Nitrogen 28 mg/dL (9-16); Calcium 9.3 mg/dL (8.4-10.2); Carbon Dioxide 28 mmol/L (22-29); Chloride 106 mmol/L (96-108); Creatinine Clr Calc Pharmacy 73.9; Estimated Glomerular Filt Rate > 60; Glucose Random 105 mg/dL (60-115); Potassium 4.6 mmol/L (3.3-5.1); Sodium 141 mmol/L (135-145); Total Protein 6.9 g/dL (6.5-8.0)
[2020-12-15 03:39] LABS: Troponin-I High Sensitivity 3.6 ng/L (<3.5-17.0)
[2020-12-15] MEDS: Acetaminophen 325 MG TABLET 975 MG PO (05:49)
[2020-12-15] MEDS: Ketorolac Tromethamine 15 MG/ML VIAL IVPUSH (05:49)
[2020-12-15] MEDS: Lidocaine 4 % Patch ADH..PATCH 1 PATCH TRANSDERMA (05:50)
[2020-12-15 05:58] VITALS: BP 128/74; PULSE 68; RESP 16; TEMP 36.5; O2SAT 98
[2020-12-15 07:24] VITALS: BP 140/70; PULSE 73; RESP 13; TEMP 36.7; O2SAT 98
--- NOTE | 2020-12-15 07:26 | ED.GENADULT ---
HPI - General Adult General Chief complaint: General Medical Stated complaint: neck pain radiates to left arm Time Seen by Provider: 12/15/20 02:30 Source: patient Mode of arrival: ambulatory History of Present Illness HPI narrative: 50-year-old female who woke up yesterday morning and stated that she had posterior left shoulder discomfort that progressively worsened throughout the day limiting her ability to move her head to the left but not associated with any headache, dizziness, diaphoresis, nausea. Patient was concerned because she is recently being worked up for premature heartbeats but otherwise denies any fever, chills, but patient reports worsening shortness of breath without increasing her use of albuterol as she is concerned due to her palpitations/heart rhythm. Related Data Previous Rx's Medication Instructions Recorded ondansetron 4 mg disintegrating 4 mg PO Q6H PRN #10 tab 07/24/20 tablet oxycodone 5 mg tablet 5 mg PO Q6H PRN #10 tab 07/24/20 ketorolac 10 mg tablet 10 mg PO Q6H PRN 5 Days #20 tab 12/15/20 Allergies Allergy/AdvReac Type Severity Reaction Status Date / Time No Known Allergies Allergy Verified 08/02/20 14:30 Review of Systems Review of Systems: Pertinent positives and negatives as stated in HPI 10 point review of systems is otherwise negative. [facility] Past Medical History Source: nursing notes reviewed Medical History Gallstones Morbid obesity Surgical History History of arthroplasty of right shoulder History of bunionectomy History of eye surgery Family History Family History Unknown Unknown family medical history Social History Social History Alcohol intake: never Patient Tobacco Use Status: Former Tobacco user Use of substances other than those prescribed or required for medical reasons: No Advance Directives: No Advance Directives Information Provided: Yes Patient : No Physical Exam Vital Signs: Vital Signs: Last Vital Signs Temp 98.0 F 12/15/20 07:24 Pulse 73 12/15/20 07:24 Resp 13 12/15/20 07:24 BP 140/70 H 12/15/20 07:24 Pulse Ox 98 12/15/20 07:24 Body Mass Index 43.9 VITAL SIGNS: Reviewed. GENERAL: Well developed, well nourished, in no acute distress. HEAD: Normocephalic/atraumatic EYES: PERRLA, EOMI EARS: Ext canals without abnormality NOSE: Nares patent bilateral OROPHARYNX: no oral lesions noted, posterior pharynx clear NECK: Supple, but pain with attempts to turn head to the left, no adenopathy, noted spasm over left posterior shoulder LUNGS: Normal breath sounds. No adventitious sounds or accessory muscle use. SpO2<98> CARDIOVASCULAR: Regular rate and rhythm without noted murmurs, no JVD or lower extremity edema. ABDOMEN: Soft, non-tender, non-distended with bowel sounds. NEUROLOGIC: Alert and oriented x 4. Course Course Course Narrative: 50-year-old female with history and clinical presentation consistent with reproducible posterior left shoulder pain most consistent with likely having slept on it wrong the night before. Combination analgesics as well as evaluation for cardiopulmonary etiologies was conducted. Review of all investigations otherwise negative for acute findings and on re-evaluation patient reports significant improvement in her symptoms. Medical Decision Making Lab Data Result diagrams: 12/15/20 03:11 12/15/20 03:11 Labs: Lab Results 12/15/20 12/15/20 12/15/20 Range/Units 03:11 03:11 03:11 WBC 11.9 H (4.8-10.8) X10*3/uL RBC 4.73 (4.20-5.50) X10*6/uL Hgb 13.9 (12.0-16.0) g/dl Hct 42.4 (37-47) % MCV 89.6 (80-98) fL MCH 29.4 (27.0-33.0) pg MCHC 32.8 (31.0-35.0) g/dl RDW 12.4 (11.0-16.0) % Plt Count 197 (160-400) X10*3/uL MPV 11.9 (9.4-12.3) fL Immature Gran % (Auto) 0.3 (0.0-0.4) % Neut % (Auto) 56.2 (45-73) % Lymph % (Auto) 31.1 (20-40) % [place] % (Auto) 8.6 (2-11) % Eos % (Auto) 3.2 (0-4) % Baso % (Auto) 0.6 (0-2) % Lymph # (Auto) 3.7 (1.2-4.9) X10*3/uL [place] # (Auto) 1.0 (0.1-1.2) X10*3/uL Eos # (Auto) 0.4 (0.0-0.4) X10*3/uL Baso # (Auto) 0.1 (0.0-0.2) X10*3/uL Abs Immat Gran (auto) 0.03 (0.00-0.03) X10*3/uL Absolute Neuts (auto) 6.7 (2.0-8.3) X10*3/uL Absolute Nucleated RBC 0.000 (0.0-0.012) X10*3/uL Nucleated RBC % (auto) 0.0 (0.0-0.2) /100WBC Sodium 141 (135-145) mmol/L Potassium 4.6 (3.3-5.1) mmol/L Chloride 106 (96-108) mmol/L Carbon Dioxide 28 (22-29) mmol/L Anion Gap 12 (12-20) BUN 28 H (9-16) mg/dL Creatinine 0.93 (0.5-1.4) mg/dL Estim Creat Clear Calc 73.9 Estimated GFR > 60 Random Glucose 105 (60-115) mg/dL Calcium 9.3 (8.4-10.2) mg/dL Total Bilirubin 0.3 (0.0-1.0) mg/dL AST 19 (5-31) U/L ALT 39 H (0-31) U/L Alkaline Phosphatase 80 D (39-117) U/L Troponin I High Sens 3.6 (<3.5-17.0) ng/L Total Protein 6.9 (6.5-8.0) g/dL Albumin 4.3 (3.5-5.0) g/dL Discharge Plan Discharge Clinical Impression: Muscle spasm, Neck pain Patient Disposition: Home, Self-Care Instructions: Muscle Spasm (ED), Neck Pain (ED) Additional Instructions: 1. Resume all home medications as prescribed. 2. Follow-up with your primary care provider on Thursday morning for re-evaluation and further outpatient management. 3. Tylenol 1000 mg, orally, every 6 hours as needed for pain control. Do not exceed 4000 mg within 24 hours. 4. Lidocaine patch, available [id number], apply to area of maximal tenderness as directed on the outside packaging. Return to the ER for acute worsening of symptoms. Prescriptions: New ketorolac 10 mg tablet 10 mg PO Q6H PRN (Reason: pain) 5 Days Qty: 20 RF: 0 No Action oxycodone 5 mg tablet 5 mg PO Q6H PRN (Reason: pain) Qty: 10 RF: 0 ondansetron 4 mg tablet,disintegrating 4 mg PO Q6H PRN (Reason: nausea and vomiting) Qty: 10 RF: 0 Referrals: Physician,Unknown J [Primary Care Provider] - 2 days
== END 2020-12-15 07:47 | disposition home or self-care (01) ==
PROVIDERS: Emergency Provider Student in an Organized Health Care Education/Training Program
DX: M54.2 Cervicalgia (principal); M25.512 Pain in left shoulder; R07.9 Chest pain, unspecified; Z79.899 Other long term (current) drug therapy
CPT/HCPCS: 36415; 71045; 80053; 84484; 85025; 93005; 96374; 99284; 99285; J1885

== ENCOUNTER 2022-01-10 11:48 | Emergency (ER) | payer OTHER, SELFPAY ==
--- NOTE | ~2022-01-10 | XR_ITS ---
EXAMINATION: XR CHEST CLINICAL INFORMATION: Cough, shortness of breath COMPARISON: None TECHNIQUE: 2 views of the chest were obtained. FINDINGS: The lungs are well-expanded and clear of acute process. The heart size and pulmonary vascularity is normal. No gross bony abnormality seen. XR/XR chest 2V IMPRESSION: Unremarkable chest exam.
--- NOTE | 2022-01-10 12:38 | ED_ITS ---
HPI - URI/Sore Throat General Chief Complaint: Dyspnea <Carrie Xiong CNP - Last Filed: 01/10/22 12:51> Stated Complaint: difficulty breathing, asthma, cold symptoms <Carrie Xiong CNP - Last Filed: 01/10/22 12:51> Time Seen by Provider: 01/10/22 13:47 <Carrie Xiong CNP - Last Filed: 01/10/22 12:51> Source: patient <RODNEY Arellano - Last Filed: 01/10/22 14:53> Mode of arrival: ambulatory <RODNEY Arellano Last Filed: 01/10/22 14:53> Limitations: no limitations <RODNEY Arellano Last Filed: 01/10/22 14:53> History of Present Illness HPI Narrative: Patient is a 51 year old assigned female at with a history of sleep apnea presenting to the emergency department today with a cough. Patient states that since yesterday she has had a cough. Patient denies any dizziness, lightheadedness, abdominal pain, nausea, vomiting, fever, chills, blurry vision, double vision, loss of vision, chest pain, difficulty breathing, shortness of breath, back pain, night sweats, pain with urination, increased urinary frequency, increased urinary urgency, blood in her urine or stool, syncope or a near syncopal episode, recent trauma or falls, bowel incontinence, bladder incontinence, bowel retention, bladder retention, or any other complaints at this time. <RODNEY Arellano - Last Filed: 01/10/22 14:53> MD elicited complaint: cough <RODNEY Arellano - Last Filed: 01/10/22 14:53> Onset (ago): day(s) (1) <RODNEY Arellano - Last Filed: 01/10/22 14:53> Consistency: constant <RODNEY Arellano Last Filed: 01/10/22 14:53> Severity: mild <RODNEY Arellano Last Filed: 01/10/22 14:53> Able to tolerate fluids by mouth: Yes <RODNEY Arellano Last Filed: 01/10/22 14:53> Exacerbating factors: nothing <RODNEY Arellano Last Filed: 01/10/22 14:53> Relieving factors: nothing <RODNEY Arellano - Last Filed: 01/10/22 14:53> Context: sick contacts <RODNEY Arellano - Last Filed: 01/10/22 14:53> Associated symptoms: cough <RODNEY Arellano - Last Filed: 01/10/22 14:53> Treatments prior to arrival: none <RODNEY Arellano - Last Filed: 01/10/22 14:53> Related Data Home Medications: Previous Rx's Medication Instructions Recorded ondansetron 4 mg disintegrating 4 mg PO Q6H PRN nausea and 07/24/20 tablet vomiting #10 tabs oxycodone 5 mg tablet 5 mg PO Q6H PRN pain #10 tabs 07/24/20 ketorolac 10 mg tablet 10 mg PO Q6H PRN pain 5 days #20 12/15/20 tabs <Carrie Xiong CNP - Last Filed: 01/10/22 12:51> Allergies/Adverse Reactions: Allergies Allergy/AdvReac Type Severity Reaction Status Date / Time No Known Allergies Allergy Verified 08/02/20 14:30 <Carrie Xiong CNP - Last Filed: 01/10/22 12:51> Review of Systems Constitutional: Constitutional: Reports no additional constitutional complaints, Denies chills, Reports fever(s) and Denies night sweats <RODNEY Arellano - Last Filed: 01/10/22 14:53> Eyes: Eyes: Reports no additional eye complaints, Denies blurry vision, Denies change in vision, Denies diplopia, Denies eye discharge, Denies loss of vision and Denies eye pain <RODNEY Arellano - Last Filed: 01/10/22 14:53> ENT: Denies dizziness <RODNEY Arellano - Last Filed: 01/10/22 14:53> Cardiovascular: Cardiovascular: Reports no additional cardiovascular complaints, Denies chest pain, Denies lightheadedness, Denies Loss of Consciousness and Denies dyspnea <RODNEY Arellano - Last Filed: 01/10/22 14:53> Respiratory: Respiratory: Reports no additional respiratory complaints, Reports cough and Denies dyspnea <RODNEY Arellano - Last Filed: 01/10/22 14:53> Gastrointestinal: Gastrointestinal: Reports no additional gastrointestinal complaints, Denies abdominal pain, Denies melena, Denies hematochezia, Denies change in bowel habits and Denies change in stool character <RODNEY Arellano - Last Filed: 01/10/22 14:53> Genitourinary: Genitourinary: Denies hematuria, Denies urinary frequency, Denies dysuria, Denies urinary incontinence, Denies urinary hesitancy and Denies urinary urgency <RODNEY Arellano - Last Filed: 01/10/22 14:53> Musculoskeletal: Musculoskeletal: Reports no additional musculoskeletal complaints, Denies numbness and Denies tingling <RODNEY Arellano - Last Filed: 01/10/22 14:53> Neurologic: Denies dizziness, Denies loss of vision, Denies numbness and Denies tingling <RODNYE Arellano - Last Filed: 01/10/22 14:53> Psychiatric: Psychiatric: Reports no additional psychiatric complaints <RODNEY Arellano - Last Filed: 01/10/22 14:53> Endocrine: Endocrine: Reports no additional endocrine complaints <RODNEY Arellano - Last Filed: 01/10/22 14:53> Hematologic/Lymphatic: Hematologic/Lymphatic: Reports no additional hematologic/lymphatic complaints <RODNEY Arellano - Last Filed: 01/10/22 14:53> Allergic/Immunologic: Allergic/Immunologic: Reports no additional allergic/ immunologic complaints <RODNEY Arellano - Last Filed: 01/10/22 14:53> FORMERLY [facility] Past Medical History Attestation statement: The following information was validated with the patient. <RODNEY Arellano - Last Filed: 01/10/22 14:53> Source: old records reviewed <RODNEY Arellano - Last Filed: 01/10/22 14:53> Medical History: Medical History Gallstones Morbid obesity <Carrie Xiong CNP - Last Filed: 01/10/22 12:51> Surgical History: Surgical History History of arthroplasty of right shoulder History of bunionectomy History of eye surgery <Carrie Vamariann Xiong CNP - Last Filed: 01/10/22 12:51> Family History Family History: Family History Unknown Unknown family medical history <Carrie Xiong CNP - Last Filed: 01/10/22 12:51> Social History Social History: Social History Alcohol intake: never Patient Tobacco Use Status: Former Tobacco user Advance Directives: No <Carrie Marie UZMA Xiong - Last Filed: 01/10/22 12:51> Physical Exam Vital Signs: Vital Signs: Last Vital Signs Temp 101.8 F H 01/10/22 12:42 Pulse 120 H 01/10/22 12:42 Resp 22 H 01/10/22 12:42 BP 157/108 H 01/10/22 12:42 Pulse Ox 95 01/10/22 12:42 O2 Del Method 01/10/22 12:42 BMI result Body Mass Index 47.6 <Carrie Marie UZMA Xiong - Last Filed: 01/10/22 12:51> Vital Signs: Last Vital Signs Temp 101.8 F H 01/10/22 12:42 Pulse 120 H 01/10/22 12:42 Resp 22 H 01/10/22 12:42 BP 157/108 H 01/10/22 12:42 Pulse Ox 95 01/10/22 12:42 O2 Del Method 01/10/22 12:42 BMI result Body Mass Index 47.6 <RODNEY Arellano - Last Filed: 01/10/22 14:53> Const: General: cooperative, no acute distress, alert and awake <RODNEY Arellano - Last Filed: 01/10/22 14:53> Nutritional Appearance: well nourished <RODNEY Arellano - Last Filed: 01/10/22 14:53> Orientation/consciousness: patient oriented x3 <RODNEY Arellano - Last Filed: 01/10/22 14:53> Limitations: no limitations <RODNEY Arellano - Last Filed: 01/10/22 14:53> HEENT: Head: Yes normal to inspection and Yes atraumatic <Kristine Timmons ND - Last Filed: 01/10/22 14:53> Ears: hearing grossly normal bilaterally and external ears normal <Kristine Timmons ND - Last Filed: 01/10/22 14:53> General nose exam: Normal external nose present, no nasal discharge noted and no epistaxis <Kristine Timmons ND - Last Filed: 01/10/22 14:53> Face and sinus: Yes normal facial exam, No abrasion and No laceration <Kristine Timmons ND - Last Filed: 01/10/22 14:53> Mouth: Normal oral and palatal mucosa present, no drooling and no muffled voice <Kristine Timmons ND - Last Filed: 01/10/22 14:53> Eyes: General: appearance normal, both eyes and all related structures <Kristine Timmons ND - Last Filed: 01/10/22 14:53> Periorbital: periorbital findings normal <Kristine Timmons ND - Last Filed: 01/10/22 14:53> Eyelids: Yes eyelids normal <Kristine Timmons ND - Last Filed: 01/10/22 14:53> Conjunctivae: conjunctivae normal <Kristine Timmons ND - Last Filed: 01/10/22 14:53> Pupils: Equal, round and reactive pupils present <Kristine Timmons ND - Last Filed: 01/10/22 14:53> EOM: EOMs intact bilaterally <Kristine Timmons ND - Last Filed: 01/10/22 14:53> Neck: Neck: Yes normal visual inspection, Yes full ROM and Yes no lymphadenopathy <Kristine Timmons ND - Last Filed: 01/10/22 14:53> Chest: Chest palpation & inspection: normal inspection of the chest <Kristine GallegosRODNEY white - Last Filed: 01/10/22 14:53> Resp: Effort & Inspection: normal respiratory effort and able to speak in complete sentences <Kristine GallegosRODNEY white - Last Filed: 01/10/22 14:53> Auscultation: clear to auscultation bilaterally <Kristine Gallegoscindy ND - Last Filed: 01/10/22 14:53> Cardio: Rate: regular rate <Kristine Timmons PA - Last Filed: 01/10/22 14:53> Rhythm: regular rhythm <Kristine Timmons RODNEY - Last Filed: 01/10/22 14:53> GI: Inspection: Yes normal to inspection <Kristine Timmons PA - Last Filed: 01/10/22 14:53> Neuro: General: patient oriented x3 and moves all extremities <Kristine Timmons RODNEY - Last Filed: 01/10/22 14:53> Cranial nerves: Yes Equal, round and reactive pupils present <Kristine Timmons PA - Last Filed: 01/10/22 14:53> Cognition (Neuro): normal cognition <Kristine Timmons RODNEY - Last Filed: 01/10/22 14:53> Motor exam (neuro): 5/5 motor strength present throughout <Kristine Timmons PA - Last Filed: 01/10/22 14:53> Sensory Exam: Normal double simultaneous stimulation for sensation <Kristine Timmons RODNEY - Last Filed: 01/10/22 14:53> Coordination: [id number] test normal <Kristine Timmons PA - Last Filed: 01/10/22 14:53> Extrem: General: Yes normal to inspection, Yes full ROM and Yes capillary refill normal <Kristine Timmons PA - Last Filed: 01/10/22 14:53> Psych: Appearance: grossly normal <Kristine Timmons RODNEY - Last Filed: 01/10/22 14:53> Mental Status: mental status grossly normal <Kristine Timmons RODNEY - Last Filed: 01/10/22 14:53> Affect: normal affect <Kristine Timmons RODNEY - Last Filed: 01/10/22 14:53> Attitude: cooperative <Kristine Timmons RODNEY - Last Filed: 01/10/22 14:53> Thought process: Normal thought process present <Kristine TimmonsRODNEY - Last Filed: 01/10/22 14:53> Thought content: Normal thought content present <Kristine TimmonsRODNEY - Last Filed: 01/10/22 14:53> Insight: Good insight present (Psych) <Kristine GallegosRODNEY white - Last Filed: 01/10/22 14:53> Course Course Course Narrative: RME: Patient is a 51-year-old female presenting to emergency department with complaints of cough, shortness of breath, concern for asthma exacerbation unrelieved by home inhalers, shaking chills. Symptom onset was yesterday. Denies known sick contacts. Feels like history of bronchitis in the past but much worse. PE: Expiratory wheezing throughout bilaterally, tachycardic, febrile Plan: Meeting SIRS criteria, likely viral in nature, however will obtain blood culture, lactic acid, CBC, CMP, EKG given tackycardia, Chest XR, acetaminophen for pain <Carrie Xiong CNP - Last Filed: 01/10/22 12:51> Medications Administered Discontinued Medications Generic Name Dose Route Start Last Admin Trade Name Freq PRN Reason Stop Dose Admin Acetaminophen 650 mg 01/10/22 12:44 01/10/22 12:49 Acetaminophen 325 Mg Tablet PO 01/10/22 12:45 650 mg ONCE ONE Administration <Carrie Xiong CNP - Last Filed: 01/10/22 12:51> Medications Administered Discontinued Medications Generic Name Dose Route Start Last Admin Trade Name Freq PRN Reason Stop Dose Admin Acetaminophen 650 mg 01/10/22 12:44 01/10/22 12:49 Acetaminophen 325 Mg Tablet PO 01/10/22 12:45 650 mg ONCE ONE Administration <RODNEY Arellano - Last Filed: 01/10/22 14:53> MDM - URI/Sore Throat MDM Narrative Medical decision making narrative: Patient is a 51 year old assigned female at with a history of sleep apnea presenting to the emergency department today with a cough. Patient's physical exam was unremarkable. Patient's blood work was unremarkable. Patient's EKG was unremarkable. Patient's chest x-ray showed no acute process. Patient's rapid influenza test was positive. I explained my physical exam findings as well as all test results to the patient. I answered all questions asked by the patient. I stressed the importance of the patient taking her medication as prescribed. I stressed the importance of the patient following up with her primary care provider. I stressed the importance of the patient returning to the emergency department immediately if her symptoms were to worsen or if she were to develop any dizziness, shortness of breath, difficulty breathing, chest pain, blurry vision, loss of vision, nausea, vomiting, abdominal pain, fever, chills, back pain, or any other complaints. Patient verbalized agreement and understanding with this treatment plan and discharge. <RODNEY Arellano - Last Filed: 01/10/22 14:53> Differential Diagnosis Differential diagnosis: Likely influenza <RODNEY Arellano - Last Filed: 01/10/22 14:53> Medical Records Attestation: I reviewed the patient's medical records. <RODNEY Arellano - Last Filed: 01/10/22 14:53> Lab Data Attestation: I reviewed the patient's lab results. <RODNEY Arellano - Last Filed: 01/10/22 14:53> Result diagrams: : 01/10/22 13:15 01/10/22 13:15 <Carrie Xiong CNP - Last Filed: 01/10/22 12:51> Labs: Lab Results 01/10/22 01/10/22 01/10/22 Range/Units 13:15 13:15 13:15 WBC 8.7 (4.8-10.8) X10*3/uL RBC 4.84 (4.20-5.50) X10*6/uL Hgb 13.8 (12.0-16.0) g/dl Hct 41.4 (37.0-47.0) % MCV 85.5 (80.0-98.0) fL MCH 28.5 (27.0-33.0) pg MCHC 33.3 (31.0-35.0) g/dl RDW 12.0 (11.0-16.0) % Plt Count 192 (160-400) X10*3/uL MPV 10.7 (9.4-12.3) fL Immature Gran % (Auto) 0.2 (0.0-0.4) % Neut % (Auto) 81.4 H (45-73) % Lymph % (Auto) 4.6 L (20-40) % [place] % (Auto) 11.9 H (2-11) % Eos % (Auto) 1.3 (0-4) % Baso % (Auto) 0.6 (0-2) % Lymph # (Auto) 0.4 L (1.2-4.9) X10*3/uL [place] # (Auto) 1.0 (0.1-1.2) X10*3/uL Eos # (Auto) 0.1 (0.0-0.4) X10*3/uL Baso # (Auto) 0.1 (0.0-0.2) X10*3/uL Abs Immat Gran (auto) 0.02 (0.00-0.03) X10*3/uL Absolute Neuts (auto) 7.1 (2.0-8.3) x10*3/uL Absolute Nucleated RBC 0.000 (0.0-0.012) X10*3/uL Nucleated RBC % (auto) 0.0 (0.0-0.2) /100WBC Sodium (135-145) mmol/L Potassium (3.3-5.1) mmol/L Chloride (96-108) mmol/L Carbon Dioxide (22-29) mmol/L Anion Gap (12-20) BUN (9-16) mg/dL Creatinine (0.5-1.4) mg/dL Estim Creat Clear Calc Estimated GFR Random Glucose (60-115) mg/dL Lactic Acid (0.5-2.0) mmol/L Calcium (8.4-10.2) mg/dL Total Bilirubin (0.0-1.0) mg/dL AST (5-31) U/L ALT (0-31) U/L Alkaline Phosphatase (39-117) U/L Total Protein (6.5-8.0) g/dL Albumin (3.5-5.0) g/dL COVID-19 (SUPA) Negative (Negative) COVID-19 Clin Com See Note Influenza Type A (LUIS) Positive A (Negative) Influenza Type B (LUIS) Negative (Negative) Influenza A & B Note See Note 01/10/22 01/10/22 Range/Units 13:15 13:15 WBC (4.8-10.8) X10*3/uL RBC (4.20-5.50) X10*6/uL Hgb (12.0-16.0) g/dl Hct (37.0-47.0) % MCV (80.0-98.0) fL MCH (27.0-33.0) pg MCHC (31.0-35.0) g/dl RDW (11.0-16.0) % Plt Count (160-400) X10*3/uL MPV (9.4-12.3) fL Immature Gran % (Auto) (0.0-0.4) % Neut % (Auto) (45-73) % Lymph % (Auto) (20-40) % [place] % (Auto) (2-11) % Eos % (Auto) (0-4) % Baso % (Auto) (0-2) % Lymph # (Auto) (1.2-4.9) X10*3/uL [place] # (Auto) (0.1-1.2) X10*3/uL Eos # (Auto) (0.0-0.4) X10*3/uL Baso # (Auto) (0.0-0.2) X10*3/uL Abs Immat Gran (auto) (0.00-0.03) X10*3/uL Absolute Neuts (auto) (2.0-8.3) x10*3/uL Absolute Nucleated RBC (0.0-0.012) X10*3/uL Nucleated RBC % (auto) (0.0-0.2) /100WBC Sodium 138 (135-145) mmol/L Potassium 4.1 (3.3-5.1) mmol/L Chloride 103 (96-108) mmol/L Carbon Dioxide 24 (22-29) mmol/L Anion Gap 15 (12-20) BUN 14 (9-16) mg/dL Creatinine 0.89 (0.5-1.4) mg/dL Estim Creat Clear Calc 80.2 Estimated GFR > 60 Random Glucose 119 H (60-115) mg/dL Lactic Acid 1.0 (0.5-2.0) mmol/L Calcium 9.4 (8.4-10.2) mg/dL Total Bilirubin 0.3 (0.0-1.0) mg/dL AST 27 (5-31) U/L ALT 37 H (0-31) U/L Alkaline Phosphatase 72 (39-117) U/L Total Protein 7.3 (6.5-8.0) g/dL Albumin 4.6 (3.5-5.0) g/dL COVID-19 (SUPA) (Negative) COVID-19 Clin Com Influenza Type A (LUIS) (Negative) Influenza Type B (LUIS) (Negative) Influenza A & B Note <Carrie Brooksmariann Xiong, [employer] - Last Filed: 01/10/22 12:51> Lab Results 01/10/22 01/10/22 01/10/22 Range/Units 13:15 13:15 13:15 WBC 8.7 (4.8-10.8) X10*3/uL RBC 4.84 (4.20-5.50) X10*6/uL Hgb 13.8 (12.0-16.0) g/dl Hct 41.4 (37.0-47.0) % MCV 85.5 (80.0-98.0) fL MCH 28.5 (27.0-33.0) pg MCHC 33.3 (31.0-35.0) g/dl RDW 12.0 (11.0-16.0) % Plt Count 192 (160-400) X10*3/uL MPV 10.7 (9.4-12.3) fL Immature Gran % (Auto) 0.2 (0.0-0.4) % Neut % (Auto) 81.4 H (45-73) % Lymph % (Auto) 4.6 L (20-40) % [place] % (Auto) 11.9 H (2-11) % Eos % (Auto) 1.3 (0-4) % Baso % (Auto) 0.6 (0-2) % Lymph # (Auto) 0.4 L (1.2-4.9) X10*3/uL [place] # (Auto) 1.0 (0.1-1.2) X10*3/uL Eos # (Auto) 0.1 (0.0-0.4) X10*3/uL Baso # (Auto) 0.1 (0.0-0.2) X10*3/uL Abs Immat Gran (auto) 0.02 (0.00-0.03) X10*3/uL Absolute Neuts (auto) 7.1 (2.0-8.3) x10*3/uL Absolute Nucleated RBC 0.000 (0.0-0.012) X10*3/uL Nucleated RBC % (auto) 0.0 (0.0-0.2) /100WBC Sodium (135-145) mmol/L Potassium (3.3-5.1) mmol/L Chloride (96-108) mmol/L Carbon Dioxide (22-29) mmol/L Anion Gap (12-20) BUN (9-16) mg/dL Creatinine (0.5-1.4) mg/dL Estim Creat Clear Calc Estimated GFR Random Glucose (60-115) mg/dL Lactic Acid (0.5-2.0) mmol/L Calcium (8.4-10.2) mg/dL Total Bilirubin (0.0-1.0) mg/dL AST (5-31) U/L ALT (0-31) U/L Alkaline Phosphatase (39-117) U/L Total Protein (6.5-8.0) g/dL Albumin (3.5-5.0) g/dL COVID-19 (SUPA) Negative (Negative) COVID-19 Clin Com See Note Influenza Type A (LUIS) Positive A (Negative) Influenza Type B (LUIS) Negative (Negative) Influenza A & B Note See Note 01/10/22 01/10/22 Range/Units 13:15 13:15 WBC (4.8-10.8) X10*3/uL RBC (4.20-5.50) X10*6/uL Hgb (12.0-16.0) g/dl Hct (37.0-47.0) % MCV (80.0-98.0) fL MCH (27.0-33.0) pg MCHC (31.0-35.0) g/dl RDW (11.0-16.0) % Plt Count (160-400) X10*3/uL MPV (9.4-12.3) fL Immature Gran % (Auto) (0.0-0.4) % Neut % (Auto) (45-73) % Lymph % (Auto) (20-40) % [place] % (Auto) (2-11) % Eos % (Auto) (0-4) % Baso % (Auto) (0-2) % Lymph # (Auto) (1.2-4.9) X10*3/uL [place] # (Auto) (0.1-1.2) X10*3/uL Eos # (Auto) (0.0-0.4) X10*3/uL Baso # (Auto) (0.0-0.2) X10*3/uL Abs Immat Gran (auto) (0.00-0.03) X10*3/uL Absolute Neuts (auto) (2.0-8.3) x10*3/uL Absolute Nucleated RBC (0.0-0.012) X10*3/uL Nucleated RBC % (auto) (0.0-0.2) /100WBC Sodium 138 (135-145) mmol/L Potassium 4.1 (3.3-5.1) mmol/L Chloride 103 (96-108) mmol/L Carbon Dioxide 24 (22-29) mmol/L Anion Gap 15 (12-20) BUN 14 (9-16) mg/dL Creatinine 0.89 (0.5-1.4) mg/dL Estim Creat Clear Calc 80.2 Estimated GFR > 60 Random Glucose 119 H (60-115) mg/dL Lactic Acid 1.0 (0.5-2.0) mmol/L Calcium 9.4 (8.4-10.2) mg/dL Total Bilirubin 0.3 (0.0-1.0) mg/dL AST 27 (5-31) U/L ALT 37 H (0-31) U/L Alkaline Phosphatase 72 (39-117) U/L Total Protein 7.3 (6.5-8.0) g/dL Albumin 4.6 (3.5-5.0) g/dL COVID-19 (SUPA) (Negative) COVID-19 Clin Com Influenza Type A (LUIS) (Negative) Influenza Type B (LUIS) (Negative) Influenza A & B Note <RODNEY Arellano - Last Filed: 01/10/22 14:53> Imaging Data Chest x-ray: Attestation: I personally reviewed and interpreted this imaging study as follows: <RODNEY Arellano - Last Filed: 01/10/22 14:53> My impression: No acute process. <RODNEY Arellano - Last Filed: 01/10/22 14:53> Radiologist's impression: EXAMINATION: XR CHEST CLINICAL INFORMATION: Cough, shortness of breath COMPARISON: None TECHNIQUE: 2 views of the chest were obtained. FINDINGS: The lungs are well-expanded and clear of acute process. The heart size and pulmonary vascularity is normal. No gross bony abnormality seen. XR/XR chest 2V IMPRESSION: Unremarkable chest exam. Dictated By: Ari Su MD Signed By: Electronically signed by Ari Su MD 01/10/22 1352 <RODNEY Arellano - Last Filed: 01/10/22 14:53> ECG Data Attestation: I personally reviewed and interpreted this ECG as follows: <RODNEY Arellano - Last Filed: 01/10/22 14:53> ECG interpretation date: 01/10/22 <RODNEY Arellano - Last Filed: 01/10/22 14:53> ECG interpretation time: 12:58 <RODNEY Arellano - Last Filed: 01/10/22 14:53> Prior ECG tracings: available for review <RODNEY Arellano - Last Filed: 01/10/22 14:53> Interpretation: Vent. Rate: 117 BPM ? ? Atrial Rate: 117 BPM P-R Int: 136 ms? QRS Dur: 078 ms QT Int: 310 ms ? ? ? P-R-T Axes: 041 055 013 degrees QTc Int: 432 ms ? Sinus tachycardia Possible Left atrial enlargement Borderline ECG When compared with ECG of 15-DEC-2020 02:23, Premature ventricular complexes are no longer Present Vent. rate has increased BY? 40 BPM Nonspecific T wave abnormality now evident in Inferior leads Nonspecific T wave abnormality, improved in Lateral leads DD/ 1258 <RODNEY Arellano - Last Filed: 01/10/22 14:53> Discharge Plan Discharge Clinical Impression: Influenza <Carrie Xiong CNP - Last Filed: 01/10/22 12:51> Patient Disposition: Home, Self-Care <Carrie Xiong CNP - Last Filed: 01/10/22 12:51> Instructions: Influenza (ED) <Carrie Xiong CNP - Last Filed: 01/10/22 12:51> Additional Instructions: Follow up with your primary care provider. Return to the emergency department immediately if your symptoms worsen or if you develop any dizziness, shortness of breath, difficulty breathing, chest pain, blurry vision, loss of vision, nausea, vomiting, abdominal pain, fever, chills, back pain, or any other complaints. <Carrie Xiong CNP - Last Filed: 01/10/22 12:51> Prescriptions: No Action oxycodone 5 mg tablet 5 mg PO Q6H PRN (Reason: pain) Qty: 10 0RF ondansetron 4 mg tablet,disintegrating 4 mg PO Q6H PRN (Reason: nausea and vomiting) Qty: 10 0RF ketorolac 10 mg tablet 10 mg PO Q6H PRN (Reason: pain) 5 Days Qty: 20 0RF Rx Instructions: Patient received ketorolac in the emergency room. <Carrie Xiong CNP - Last Filed: 01/10/22 12:51> Referrals: Becca Santos MD [Primary Care Provider] - <Carrie Xiong CNP - Last Filed: 01/10/22 12:51> Stand Alone Forms: Work/School Release <Carrie Xiong CNP - Last Filed: 01/10/22 12:51> Print Language: Maltese <Carrie Xiong CNP - Last Filed: 01/10/22 12:51>
[2022-01-10 12:42] VITALS: BP 157/108; PULSE 120; RESP 22; TEMP 38.8; O2SAT 95; BMI 47.6
--- NOTE | 2022-01-10 12:45 | ECG_ITS ---
Test Reason : TACHYCARDIA Blood Pressure : / mmHG Vent. Rate : 117 BPM Atrial Rate : 117 BPM P-R Int : 136 ms QRS Dur : 078 ms QT Int : 310 ms P-R-T Axes : 041 055 013 degrees QTc Int : 432 ms Sinus tachycardia Possible Left atrial enlargement RSR' or QR pattern in V1 suggests right ventricular conduction delay Nonspecific T wave abnormality Inferior leads Lateral leads Abnormal ECG When compared with ECG of 15-DEC-2020 02:23, Premature ventricular complexes are no longer Present Vent. rate has increased BY 40 BPM Nonspecific T wave abnormality now evident in Inferior leads Nonspecific T wave abnormality, improved in Lateral leads Referred By: Carrie Xiong Electronically Signed By:MABLE GRIFFITH MD
[2022-01-10] MEDS: Acetaminophen 325 MG TABLET 650 MG PO (12:49)
[2022-01-10 13:23] LABS: MANUAL DIFF FLAG NO
[2022-01-10 13:25] LABS: Basophils Absolute Auto 0.1 X10*3/uL (0.0-0.2); Basophils Percent Auto 0.6 % (0-2); Eosinophils Absolute Auto 0.1 X10*3/uL (0.0-0.4); Eosinophils Percent Auto 1.3 % (0-4); Hematocrit 41.4 % (37.0-47.0); Hemoglobin 13.8 g/dl (12.0-16.0); Imm Gran Abs Auto 0.02 X10*3/uL (0.00-0.03); Imm Gran Pct Auto 0.2 % (0.0-0.4); Lymphocytes Absolute Auto 0.4 X10*3/uL (1.2-4.9); Lymphocytes Percent Auto 4.6 % (20-40); Mean Corpuscular HGB Conc 33.3 g/dl (31.0-35.0); Mean Corpuscular Hemoglobin 28.5 pg (27.0-33.0); Mean Corpuscular Volume 85.5 fL (80.0-98.0); Mean Platelet Volume 10.7 fL (9.4-12.3); Monocytes Percent Auto 11.9 % (2-11); Neutrophils Absolute Auto 7.1 x10*3/uL (2.0-8.3); Neutrophils Percent Auto 81.4 % (45-73); Platelet Count 192 X10*3/uL (160-400); Red Blood Count 4.84 X10*6/uL (4.20-5.50); White Blood Count 8.7 X10*3/uL (4.8-10.8)
[2022-01-10 13:40] LABS: Alanine Aminotransferase 37 U/L (0-31); Albumin Level 4.6 g/dL (3.5-5.0); Alkaline Phosphatase 72 U/L (39-117); Anion Gap 15 (12-20); Aspartate Amino Transferase 27 U/L (5-31); Bilirubin Total 0.3 mg/dL (0.0-1.0); Blood Urea Nitrogen 14 mg/dL (9-16); COVID-19 Test Negative (Negative); Calcium 9.4 mg/dL (8.4-10.2); Carbon Dioxide 24 mmol/L (22-29); Chloride 103 mmol/L (96-108); Creatinine Clr Calc Pharmacy 80.2; Estimated Glomerular Filt Rate > 60; Glucose Random 119 mg/dL (60-115); IDNOW Serial# BCCEAD1C; Potassium 4.1 mmol/L (3.3-5.1); Sodium 138 mmol/L (135-145); Total Protein 7.3 g/dL (6.5-8.0)
[2022-01-10 13:41] LABS: IDNOW Serial# 9DB6401D; Influenza A Positive (Negative); Influenza B2 Negative (Negative)
--- NOTE | 2022-01-10 14:30 | PC.NURSE ---
patient a/ox4 domenicarla . heart rate regular at 88 beats per minute . breathing even and unlabored , wheezes noted in upper lobes . R . T at bedside for breathing treatment . skin pink warm and dry . abdomen soft not tender . positive bowel sounds in all four quadrants . patient aware of plan of care .
[2022-01-10] MEDS: Albuterol Sulfate 5 MG, Albuterol Sulfate (0.083%) 2.5 MG 7.5 MG INHALE (14:54)
[2022-01-10] MEDS: Albuterol/Iprat 2.5/0.5MG 3 ML AMPUL.NEB INHALE (14:55)
[2022-01-10 14:57] VITALS: PULSE 110; RESP 20; O2SAT 95
[2022-01-10 15:55] VITALS: BP 93/35; PULSE 127; RESP 16; TEMP 38.3; O2SAT 97
== END 2022-01-10 15:59 | disposition home or self-care (01) ==
PROVIDERS: Nurse Practitioner Family; Emergency Provider Emergency Medicine Emergency Medical Services; PCP Internal Medicine
DX: J11.1 Influenza due to unidentified influenza virus with other respiratory manifestations (principal); R06.02 Shortness of breath; Z20.822 Contact with and (suspected) exposure to COVID-19; E66.01 Morbid (severe) obesity due to excess calories; Z68.42 Body mass index [BMI] 45.0-49.9, adult; Z87.891 Personal history of nicotine dependence
CPT/HCPCS: 36415; 71046; 80053; 83605; 85025; 87040; 87502; 87635; 93005; 94640; 99284; 99285

== ENCOUNTER 2022-04-25 22:10 | Emergency (ER) | payer OTHER, SELFPAY ==
--- NOTE | 2022-04-25 | ECG_ITS ---
Test Reason : chest pain Blood Pressure : / mmHG Vent. Rate : 088 BPM Atrial Rate : 088 BPM P-R Int : 162 ms QRS Dur : 072 ms QT Int : 366 ms P-R-T Axes : 039 046 039 degrees QTc Int : 442 ms Normal sinus rhythm Normal ECG When compared with ECG of 10-JAN-2022 12:58, No significant changes seen Referred By: Generic ED Physician Electronically Signed By:ROMEL DEMPSEY
[2022-04-25 22:18] VITALS: BP 126/68; PULSE 85; RESP 24; TEMP 36.4; O2SAT 96; BMI 46.8
[2022-04-25 22:36] LABS: Basophils Absolute Auto 0.1 X10*3/uL (0.0-0.2); Basophils Percent Auto 0.6 % (0-2); Eosinophils Absolute Auto 0.4 X10*3/uL (0.0-0.4); Eosinophils Percent Auto 4.6 % (0-4); Hematocrit 38.8 % (37.0-47.0); Hemoglobin 12.9 g/dl (12.0-16.0); Imm Gran Abs Auto 0.03 X10*3/uL (0.00-0.03); Imm Gran Pct Auto 0.3 % (0.0-0.4); Lymphocytes Absolute Auto 2.5 X10*3/uL (1.2-4.9); Lymphocytes Percent Auto 26.5 % (20-40); MANUAL DIFF FLAG NO; Mean Corpuscular HGB Conc 33.2 g/dl (31.0-35.0); Mean Corpuscular Hemoglobin 28.8 pg (27.0-33.0); Mean Corpuscular Volume 86.6 fL (80.0-98.0); Mean Platelet Volume 10.9 fL (9.4-12.3); Monocytes Absolute Auto 0.9 X10*3/uL (0.1-1.2); Monocytes Percent Auto 9.2 % (2-11); Neutrophils Absolute Auto 5.6 x10*3/uL (2.0-8.3); Neutrophils Percent Auto 58.8 % (45-73); Platelet Count 193 X10*3/uL (160-400); Red Blood Count 4.48 X10*6/uL (4.20-5.50); Red Cell Distribution Width 11.5 % (11.0-16.0); White Blood Count 9.5 X10*3/uL (4.8-10.8)
--- NOTE | 2022-04-25 22:36 | MHC.EDTECH ---
patient ekg done and read by provider ,blood drawn ,urine sample collected and sent to lab .
[2022-04-25 22:50] LABS: Appearance Urine Cloudy; Color Urine Yellow; Glucose Urine UA Negative (Negative); Leukocyte Esterase Urine Large (3+) (Negative); Nitrite Urine Negative (Negative); PH 5.5 (5.0-9.0); Specific Gravity - Urine 1.025 (1.005-1.025); UMIC TRIGGER UACC YES; Urine Blood Small (1+) (Negative); Urine Ketones Negative (Negative); Urine Protein Negative (Neg-Trace)
[2022-04-25 22:52] LABS: Alanine Aminotransferase 43 U/L (0-31); Alkaline Phosphatase 89 U/L (39-117); Anion Gap 11 (12-20); Aspartate Amino Transferase 28 U/L (5-31); Bilirubin Total 0.4 mg/dL (0.0-1.0); Blood Urea Nitrogen 21 mg/dL (9-16); Calcium 8.8 mg/dL (8.4-10.2); Carbon Dioxide 29 mmol/L (22-29); Chloride 105 mmol/L (96-108); Creatinine Clr Calc Pharmacy 85.1; Estimated Glomerular Filt Rate > 60; Glucose Random 118 mg/dL (60-115); Potassium 4.1 mmol/L (3.3-5.1); Sodium 141 mmol/L (135-145); Total Protein 6.5 g/dL (6.5-8.0)
[2022-04-25 22:55] LABS: Bacteria Urine Trace (None Seen); Hyaline Casts Urine 0-2 /LPF (0-2); UACC Culture Trigger YES; WBC Urine >50 /HPF (0-5)
[2022-04-25 23:01] LABS: Troponin-I High Sensitivity < 3.5 ng/L (<3.5-17.0)
== END 2022-04-25 23:35 | disposition left against medical advice (07) ==
PROVIDERS: Emergency Provider Emergency Medicine
DX: R07.9 Chest pain, unspecified (principal); M54.9 Dorsalgia, unspecified; M25.512 Pain in left shoulder; M54.2 Cervicalgia; R42 Dizziness and giddiness
CPT/HCPCS: 36415; 80053; 81001; 84484; 85025; 87086; 93005; 99283

== ENCOUNTER 2022-10-10 20:47 | Emergency (ER) | payer OTHER, SELFPAY ==
[2022-10-10 21:14] VITALS: BP 148/72; PULSE 61; RESP 18; TEMP 36.4; O2SAT 98; BMI 45.4
[2022-10-11 01:23] VITALS: BP 141/97; PULSE 57; RESP 18; TEMP 35.7; O2SAT 98
--- NOTE | 2022-10-11 01:34 | ED.GENADULT ---
HPI - General Adult General Chief complaint: General Medical Stated complaint: R side facial pain, and swelling Time Seen by Provider: 10/11/22 01:01 Source: patient Mode of arrival: ambulatory Limitations: no limitations History of Present Illness HPI narrative: 52-year-old female presents with right facial swelling and pain. Symptoms started today. The symptoms are severe. Pain can radiate to her here. Is not associated with nausea, vomiting. She denies any fevers or chills. She denies any dental pain. There is no clear relieving or exacerbating features. No prior treatment. Patient has never had this before. Related Data Previous Rx's Medication Instructions Recorded ondansetron 4 mg disintegrating 4 mg PO Q6H PRN nausea and 07/24/20 tablet vomiting #10 tabs oxycodone 5 mg tablet 5 mg PO Q6H PRN pain #10 tabs 07/24/20 ketorolac 10 mg tablet 10 mg PO Q6H PRN pain 5 days #20 12/15/20 tabs amoxicillin 875 mg-potassium 1 tab PO BID #14 tabs 10/11/22 clavulanate 125 mg tablet amoxicillin 875 mg-potassium 1 tab PO BID #7 tabs 10/11/22 clavulanate 125 mg tablet ofusipjx-bzgqqqvrn-lsadsrncy 3.5 4 drp otic (ear) left Q8H #10 mL 10/11/22 mg-10,000 unit/mL-1 % ear drops,susp bnmlsrbm-uzmncojmt-evvvdtvqe 3.5 4 drp otic (ear) left Q8H #10 mL 10/11/22 mg-10,000 unit/mL-1 % ear drops,susp tramadol 50 mg tablet 50 mg PO BID PRN pain #5 tabs 10/11/22 tramadol 50 mg tablet 50 mg PO BID PRN pain #5 tabs 10/11/22 Allergies Allergy/AdvReac Type Severity Reaction Status Date / Time No Known Allergies Allergy Verified 10/10/22 21:13 Review of Systems Review of Systems: CONSTITUTIONAL: Denies weight loss, fever and chills. HEENT: Denies changes in vision and hearing. RESPIRATORY: Denies SOB and cough. CV: Denies palpitations no CP. GI: Denies abdominal pain, nausea, vomiting and diarrhea. : Denies dysuria and urinary frequency. MSK: Denies myalgia and joint pain. SKIN: Denies rash and pruritus. NEUROLOGICAL: Denies headache and syncope. PSYCHIATRIC: Denies recent changes in mood. Denies anxiety and depression. All other ROS are negative unless in HPI PMFSH Past Medical History Medical History Gallstones Morbid obesity Surgical History History of arthroplasty of right shoulder History of bunionectomy History of eye surgery Family History Family History Unknown Unknown family medical history Social History Social History Alcohol intake: never Patient Tobacco Use Status: Former Tobacco user Advance Directives: No Advance Directives Information Provided: Yes Physical Exam ED Vital Signs: Vital Signs - 24 hr 10/10/22 21:14 10/11/22 01:23 Temperature 97.6 F 96.3 F L Pulse Rate 61 57 Respiratory Rate 18 18 Blood Pressure 148/72 H 141/97 H Pulse Oximetry 98 98 Oxygen Delivery Method Room Air Room Air BMI result Body Mass Index 45.4 GEN: Well developed, no acute distress, alert, oriented HEENT: Normocephalic, atraumatic, normal external ears, nose appears normal, tender palpable parotid gland, mild erythematous change changes and edematous changes the right external auditory canal, left was normal. No evidence of acute otitis media Eyes: Normal to appearance Neck: Supple, no lymphadenopathy Respiratory: Talks in complete sentences, no respiratory distress Extremities: No clubbing cyanosis or edema Neurologic: No focal neurologic deficits, cranial nerves 2-12 intact, gait normal Skin: No rash Medical Decision Making Medical Decision Making MDM Narrative: Patient has acute otitis externa. Tympanic membrane was normal without evidence of acute otitis media. Pain could also be referred from the TMJ or from the parotid gland. Patient has per otitis as well when suddenly. I will start the patient on Augmentin, sialagogues and topical antibiotics with follow-up with primary care provider. Differential Diagnosis Differential Diagnoses: The differential diagnosis associated with the presentation includes (See above) Prescription Management I considered prescription management with: Pain Medication and Antibiotic Discharge Plan Discharge Clinical Impression: Acute parotitis, External otitis of right ear Patient Disposition: Home, Self-Care Instructions: Otitis Externa (ED), Sialoadenitis (ED) Prescriptions: New amoxicillin-pot clavulanate 875-125 mg tablet 1 tab PO BID Qty: 7 0RF tramadol 50 mg tablet 50 mg PO BID PRN (Reason: pain) Qty: 5 0RF uqhiuhjm-qwssulmbn-NQ 3.5-10,000-1 mg/mL-unit/mL-% drops,suspension 4 drp otic (ear) left Q8H Qty: 10 0RF jlehefzh-oaoqrkkio-SS 3.5-10,000-1 mg/mL-unit/mL-% drops,suspension 4 drp otic (ear) left Q8H Qty: 10 0RF tramadol 50 mg tablet 50 mg PO BID PRN (Reason: pain) Qty: 5 0RF amoxicillin-pot clavulanate 875-125 mg tablet 1 tab PO BID Qty: 14 0RF No Action oxycodone 5 mg tablet 5 mg PO Q6H PRN (Reason: pain) Qty: 10 0RF ondansetron 4 mg tablet,disintegrating 4 mg PO Q6H PRN (Reason: nausea and vomiting) Qty: 10 0RF ketorolac 10 mg tablet 10 mg PO Q6H PRN (Reason: pain) 5 Days Qty: 20 0RF Rx Instructions: Patient received ketorolac in the emergency room. Referrals: Xin Sterling MD [Primary Care Provider] - 3 days
[2022-10-11] MEDS: Amoxicillin/Potassium Clav 875 MG TABLET PO (02:13)
== END 2022-10-11 02:16 | disposition home or self-care (01) ==
PROVIDERS: Emergency Provider Emergency Medicine; PCP Internal Medicine
DX: K11.21 Acute sialoadenitis (principal); H60.91 Unspecified otitis externa, right ear; E66.01 Morbid (severe) obesity due to excess calories; Z68.42 Body mass index [BMI] 45.0-49.9, adult; Z87.891 Personal history of nicotine dependence
CPT/HCPCS: 99282; 99283

== ENCOUNTER 2023-04-17 09:53 | Outpatient (AMB) | payer OTHER, SELFPAY ==
--- NOTE | 2023-04-17 10:14 | A.OFFVIS_ITS ---
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 Patient reports bilateral knee pain that presented in the winter however the last 3 weeks her pain has been getting worse. Her left knee causes the most pain, stating tightness and tenderness as well as clicking and popping. States that she is flat footed and tried to change shoes however this did not help. Her pain is described as burning, located at the anterior and medial aspect of knee. Her knee feels unstable like it will give out. No previous tx. Finds some relief at times with soaking in epsom salt, icing and ibuprofen. 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 She states she has bilateral knee pain since the winter which has been getting worse since the last 3 weeks. Her left knee is worse than her right knee. She reports she has tightness, tenderness, as well as a burning sensation at the anterior and medial aspect of her knee which is aggravated with stair use and bending. She also c/o clicking and popping in her left knee and experiences instability as if her knee will give out. She has not had any previous treatment. She mild finds relief with icing, ibuprofen, and soaking with Epsom salt. She reports she is flat footed and tried to change her shoes which did not provide her any relief. She has a history of intermittent lower back pain. She does not have a history of diabetes. 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 Review of Systems Const All systems reviewed & are unremarkable except as noted in HPI and below Physical Exam Vital Signs: BMI result Body Mass Index 45.4 Const General: cooperative, healthy appearing, comfortable, no acute distress, well developed and alert Orientation/consciousness: patient oriented x3 HEENT Head: Yes normal to inspection, Yes normocephalic and Yes atraumatic Eyes General: appearance normal, both eyes and all related structures Resp Effort & Inspection: normal respiratory effort and able to speak in complete sentences Cardio Rate: regular rate Peripheral pulses: Peripheral pulses 2+ throughout GI Palpation (GI): Soft to palpation Skin Lesions: no lesions Rashes: no rashes Neuro General: patient oriented x3 Extrem Other: Left knee: Skin intact, no erythema or joint effusion. Tenderness along the medial joint line. Full ROM with crepitus. Negative Venkatesh?s. No ligamentous laxity. NVI. Right knee: Skin intact, no erythema or joint effusion. Tenderness along the medial and lateral joint line. Full ROM with crepitus. Negative Venkatesh?s. No ligamentous laxity. NVI. Assessment & Plan Assessment & Plan (1) Osteoarthritis of left knee: Code(s): M17.12 - Unilateral primary osteoarthritis, left knee Qualifiers: Osteoarthritis type: primary Qualified Code(s): M17.12 - Unilateral primary osteoarthritis, left knee Plan We discussed options today which include steroid injection. They did consent to move forward with the left knee injection, which was tolerated well. I recommended rest, ice and elevation and OTC anti-inflammatories PRN for discomfort. If symptoms persist or worsens over the next 6-8 weeks, patient will contact the office, otherwise follow-up as needed. Orders: Orders XR knee standing BI 04/17/23 M25.561 - Pain in right knee, M25.562 - Pain in left knee XR knee LT 2V 04/17/23 M25.562 - Pain in left knee Patient Instructions: Scribed for Pa Monteiro PA-C, by Tristen Deshpande medical researcher, on 04/17/2023 at 10:00 AM EST. IPa PA-C, have personally reviewed and agree with the information entered by the scribe. Coding Level of Care Code New Pt Level 3 (51549) Diagnoses Primary osteoarthritis of left knee M17.12 Osteoarthritis type: primary
[2023-04-17 10:21] VITALS: BMI 45.4
== END 2023-04-17 11:39 | disposition home or self-care (01) ==
PROVIDERS: PCP Internal Medicine; Visit Provider Physician Assistant
DX: M17.12 Unilateral primary osteoarthritis, left knee (principal)
CPT/HCPCS: 99203

== ENCOUNTER 2023-04-17 11:54 | Outpatient (REF) | payer OTHER, SELFPAY ==
--- NOTE | ~2023-04-17 | XR_ITS ---
Examination: Left knee TECHNIQUE: AP bilateral weightbearing, sunrise and lateral views of left knee COMPARISON: None FINDINGS: Weightbearing views revealed mild narrowing of bilateral medial compartments. There is mild narrowing of the lateral compartment of patellofemoral joint on the left and trace of joint effusion. There is minimal spurring of patella. Soft tissues are unremarkable. XR/XR knee LT 2V IMPRESSION: Mild degenerative changes in the left knee.
--- NOTE | ~2023-04-17 | XR_ITS ---
Examination: Left knee TECHNIQUE: AP bilateral weightbearing, sunrise and lateral views of left knee COMPARISON: None FINDINGS: Weightbearing views revealed mild narrowing of bilateral medial compartments. There is mild narrowing of the lateral compartment of patellofemoral joint on the left and trace of joint effusion. There is minimal spurring of patella. Soft tissues are unremarkable. XR/XR knee standing BI IMPRESSION: Mild degenerative changes in the left knee.
== END 2023-04-17 11:55 | disposition home or self-care (01) ==
LOC: HO.HOSX 11:54
PROVIDERS: Visit Provider Physician Assistant
DX: M17.12 Unilateral primary osteoarthritis, left knee (principal); M25.561 Pain in right knee
CPT/HCPCS: 20610; 73560; 73565; J1040

== ENCOUNTER 2024-02-19 20:42 | Emergency (ER) | payer OTHER, SELFPAY ==
--- NOTE | ~2024-02-19 | XR_ITS ---
CLINICAL HISTORY: shortness of breath 2 view chest x-ray Comparison: CR/SR - XR CHEST 2V - 01/10/22 13:39 EST Findings: No consolidation or effusion. Heart size is normal. No acute fracture. IMPRESSION: 1. No acute findings. This document has been electronically signed by: Thom Rodriguez MD on 02/19/2024 21:24:00
[2024-02-19 20:51] VITALS: BP 146/82; PULSE 84; RESP 17; TEMP 36.6; O2SAT 95; BMI 47.0
--- NOTE | 2024-02-19 20:52 | ED_ITS ---
HPI - General Adult General Chief complaint: Dyspnea Stated complaint: diff breathing Related Data Home Medications ?Medication ?Instructions ?Recorded ?Confirmed albuterol sulfate 90 mcg/actuation inhalation 04/17/23 aerosol inhaler metformin 500 mg tablet,extended 500 mg PO BID 04/17/23 release 24 hr methimazole 10 mg tablet 10 mg PO DAILY 04/17/23 Previous Rx's ?Medication ?Instructions ?Recorded ondansetron 4 mg disintegrating 4 mg PO Q6H PRN nausea and 07/24/20 tablet vomiting #10 tabs oxycodone 5 mg tablet 5 mg PO Q6H PRN pain #10 tabs 07/24/20 ketorolac 10 mg tablet 10 mg PO Q6H PRN pain 5 days #20 12/15/20 tabs amoxicillin 875 mg-potassium 1 tab PO BID #14 tabs 10/11/22 clavulanate 125 mg tablet amoxicillin 875 mg-potassium 1 tab PO BID #7 tabs 10/11/22 clavulanate 125 mg tablet qdylmifn-uuattlulf-asanpfmvc 3.5 4 drp otic (ear) left Q8H #10 mL 10/11/22 mg-10,000 unit/mL-1 % ear drops,susp qpqjzfll-jqlhbvadf-zudztfhnf 3.5 4 drp otic (ear) left Q8H #10 mL 10/11/22 mg-10,000 unit/mL-1 % ear drops,susp tramadol 50 mg tablet 50 mg PO BID PRN pain #5 tabs 10/11/22 tramadol 50 mg tablet 50 mg PO BID PRN pain #5 tabs 10/11/22 Allergies Allergy/AdvReac Type Severity Reaction Status Date / Time No Known Allergies Allergy Verified 02/19/24 20:54 [facility] Past Medical History Medical History (Updated 02/25/24 @ 20:50 by Savana Fontaine NP) Morbid obesity Gallstones Surgical History (Updated 04/17/23 @ 10:17 by ILDA Willingham) Hx of cholecystectomy History of eye surgery History of bunionectomy History of arthroplasty of right shoulder Family History Family History (System 12/18/22 @ 14:44 by Oxana Mishra) Unknown Unknown family medical history Social History Social History (Updated 04/17/23 @ 10:17 by ILDA Willingham) Alcohol intake: never Patient Tobacco Use Status: Former Tobacco user Advance Directives: No Advance Directives Information Provided: Yes Do you have a plan to hurt others: No Plan Current occupational status: employed 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 Patient is a 53-year-old female with history of asthma, never intubated, presenting with cold symptoms since 02/15. This evening dyspnea worsened and after showering, had a hard time catching her breath. Speaking in 2-3 word sentences in triage, lungs clear, O2 98% room air. Has been using inhalers with little relief. Plan: viral serology, CXR Medical Decision Making Lab Data Labs: Lab Results 02/19/24 Range/Units 21:20 Influenza Type A (PCR) NEGATIVE (Negative) Influenza Type B (PCR) NEGATIVE (Negative) RSV RNA Qual (PCR) NEGATIVE (Negative) SARS-CoV-2 RNA (RT-PCR) NEGATIVE (Negative) Discharge Plan Discharge Clinical Impression: Eloped from emergency department Patient Disposition: Left W/O Completing Treatment Prescriptions: No Action oxycodone 5 mg tablet 5 mg PO Q6H PRN (Reason: pain) Qty: 10 0RF ondansetron 4 mg tablet,disintegrating 4 mg PO Q6H PRN (Reason: nausea and vomiting) Qty: 10 0RF ketorolac 10 mg tablet 10 mg PO Q6H PRN (Reason: pain) 5 Days Qty: 20 0RF Rx Instructions: Patient received ketorolac in the emergency room. amoxicillin-pot clavulanate 875-125 mg tablet 1 tab PO BID Qty: 7 0RF tramadol 50 mg tablet 50 mg PO BID PRN (Reason: pain) Qty: 5 0RF zwruajrk-jeqvuepdt-YJ 3.5-10,000-1 mg/mL-unit/mL-% drops,suspension 4 drp otic (ear) left Q8H Qty: 10 0RF lmburwwx-dbiuqfnwn-IL 3.5-10,000-1 mg/mL-unit/mL-% drops,suspension 4 drp otic (ear) left Q8H Qty: 10 0RF tramadol 50 mg tablet 50 mg PO BID PRN (Reason: pain) Qty: 5 0RF amoxicillin-pot clavulanate 875-125 mg tablet 1 tab PO BID Qty: 14 0RF methimazole 10 mg tablet 10 mg PO DAILY metformin 500 mg tablet extended release 24 hr 500 mg PO BID albuterol sulfate 90 mcg/actuation HFA aerosol inhaler inhalation Discharge Date/Time: 02/19/24 23:56
[2024-02-19 22:03] LABS: Influenza A PCR NEGATIVE (Negative); Influenza B PCR NEGATIVE (Negative); Resp Syncy Virus RNA Qual PCR NEGATIVE (Negative); SARS COV2 PCR INHOUSE NEGATIVE (Negative)
== END 2024-02-19 23:56 | disposition left against medical advice (07) ==
PROVIDERS: Registered Nurse Emergency; Emergency Provider Internal Medicine; PCP Internal Medicine
DX: R06.00 Dyspnea, unspecified (principal); J45.909 Unspecified asthma, uncomplicated; Z79.84 Long term (current) use of oral hypoglycemic drugs; Z79.899 Other long term (current) drug therapy; Z03.818 Encounter for observation for suspected exposure to other biological agents ruled out; Z87.891 Personal history of nicotine dependence
CPT/HCPCS: 0241U; 71046; 99281; 99283

== ENCOUNTER → 2024-02-19 20:54 | Outpatient (BNV) | payer OTHER, SELFPAY | PROVIDERS: PCP Internal Medicine; Visit Provider Radiology Diagnostic Radiology | DX: R06.02 Shortness of breath (principal) | CPT/HCPCS: 71046 ==

== ENCOUNTER 2024-05-08 22:25 | Emergency (ER) | payer OTHER, SELFPAY ==
[2024-05-08 22:38] VITALS: BP 124/72; PULSE 72; RESP 18; TEMP 36.6; O2SAT 97; BMI 46.3
== END 2024-05-09 04:45 | disposition left against medical advice (07) ==
PROVIDERS: Emergency Provider Emergency Medicine; PCP Internal Medicine
DX: H53.8 Other visual disturbances (principal)
CPT/HCPCS: 99281

== ENCOUNTER 2024-06-27 14:11 | Emergency (ER) | payer OTHER, SELFPAY ==
--- NOTE | ~2024-06-27 | CT_ITS ---
EXAMINATION: CT HEAD WITHOUT IV CONTRAST HISTORY: blurry vision, frontal headache. TECHNIQUE: Unenhanced helical CT of the head was performed per standard departmental protocol. Coronal and sagittal reformats of the head were also evaluated. One or more of the following techniques was used for dose reduction: Automated exposure control, adjustment of the mA and/or kV according to patient size, use of iterative reconstruction technique. DLP: 744 mGy-cm COMPARISON: There are no prior studies for comparison. FINDINGS: BRAIN: The brain parenchyma is unremarkable. There is normal garsia/white differentiation. The ventricular system is normal in size and configuration. There is no mass effect or midline shift. No intra- or extra-axial fluid collections are identified. SINUSES: There is partial opacification of the bilateral ethmoid air cells. The mastoid air cells and middle ear cavities are well pneumatized. ORBITS: The visualized orbits are unremarkable. BONES/SOFT TISSUES: The extracranial soft tissues are unremarkable. The calvarium is intact. No suspicious lytic or sclerotic lesions. CT/CT head/brain wo IV con IMPRESSION: Partial opacification of the bilateral ethmoid air cells. Otherwise unremarkable unenhanced head CT. Electronically signed by: Glenn Tavares MD 06/27/2024 02:49 PM EDT
[2024-06-27 14:16] VITALS: BP 149/75; PULSE 84; RESP 18; TEMP 36.8; O2SAT 97; BMI 46.2
--- NOTE | 2024-06-27 14:19 | ED_ITS ---
HPI - General Adult General Chief complaint: Eye Problems Stated complaint: Vision Problems Time Seen by Provider: 06/27/24 15:38 History of Present Illness HPI narrative: 54 yo female with PMH significant for Grave's disease, and LOLA presents to ED for bilateral blurry vision L>R. Reports blurry vision x 2 months, after using a mail ordered GLP-1 injectable x 2 doses. Endorses seeing [facility] ophthalmology for these changes and was discharged with normal visual examination and without any diagnosis. Reports getting new glasses, which improve these symptoms mostly, however the left remains somewhat blurry. Indicates the last 2-3 days she has started to experience pressure/squeezing pain sensation in both eyes. Called the emissions testing and repair technician office to be seen but was not in office so came to ED for evaluation. Onset (ago): month(s) Location: eyes Severity: moderate Quality: other (squeezing/pressure ) Pain Consistency: constant Relieving factors: other (glasses ) Exacerbating factors: other (bright lights/sun) Associated symptoms: denies other symptoms Treatments prior to arrival: other (glasses ) Related Data Home Medications ?Medication ?Instructions ?Recorded ?Confirmed albuterol sulfate 90 mcg/actuation inhalation 04/17/23 aerosol inhaler metformin 500 mg tablet,extended 500 mg PO BID 04/17/23 release 24 hr methimazole 10 mg tablet 10 mg PO DAILY 04/17/23 Previous Rx's ?Medication ?Instructions ?Recorded ondansetron 4 mg disintegrating 4 mg PO Q6H PRN nausea and 07/24/20 tablet vomiting #10 tabs oxycodone 5 mg tablet 5 mg PO Q6H PRN pain #10 tabs 07/24/20 ketorolac 10 mg tablet 10 mg PO Q6H PRN pain 5 days #20 12/15/20 tabs amoxicillin 875 mg-potassium 1 tab PO BID #14 tabs 10/11/22 clavulanate 125 mg tablet amoxicillin 875 mg-potassium 1 tab PO BID #7 tabs 10/11/22 clavulanate 125 mg tablet uizgexwo-diripnapa-tgeaqrcfq 3.5 4 drp otic (ear) left Q8H #10 mL 10/11/22 mg-10,000 unit/mL-1 % ear drops,susp cmenjdyl-lzvamusvt-cwmegrvxx 3.5 4 drp otic (ear) left Q8H #10 mL 10/11/22 mg-10,000 unit/mL-1 % ear drops,susp tramadol 50 mg tablet 50 mg PO BID PRN pain #5 tabs 10/11/22 tramadol 50 mg tablet 50 mg PO BID PRN pain #5 tabs 10/11/22 Allergies Allergy/AdvReac Type Severity Reaction Status Date / Time No Known Allergies Allergy Verified 06/27/24 14:20 Review of Systems 2 Review of Systems: Yes all other systems are reviewed and are negative [facility] Past Medical History Medical History (Updated 06/27/24 @ 16:37 by RODNEY Flores) Morbid obesity Gallstones Surgical History (Updated 04/17/23 @ 10:17 by ILDA Willingham) Hx of cholecystectomy History of eye surgery History of bunionectomy History of arthroplasty of right shoulder Family History Family History (System 12/18/22 @ 14:44 by Oxana Mishra) Unknown Unknown family medical history Social History Social History (Updated 04/17/23 @ 10:17 by ILDA Willingham) Alcohol intake: never Patient Tobacco Use Status: Former Tobacco user Smoked in Last 30 Days: No Use of substances other than those prescribed or required for medical reasons: No Advance Directives: No Advance Directives Information Provided: No Do you have a plan to hurt others: No Plan Current occupational status: employed 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 Oriented X3. No acute distress. Head: normocephalic, atraumatic. Eyes: Pupils equal, round and reactive to light. pupils round, reactive to light, no exopthalamos, sclera white without exudate, mucus membranes pink, visual phillips intact ENT: Pharynx normal. No tonsillar swelling or exudate. Neck: Normal inspection. Neck supple. CVS: Normal heart rate and rhythm. Pulses normal. Respiratory: No respiratory distress. Breath sounds normal. Abdomen: Soft and nontender. +BS x4 Skin: Skin warm and dry. Normal skin color. Normal skin turgor. No rashes. Extremities: No lower extremity edema. No joint swelling. Neuro/psych: Oriented X 3. No motor deficit. No sensory deficit. CN II-XII intact. Normal speech and cognition. Course Course Course Narrative: RME, this is a rapid medical exam performed by Alexei Rodriguez please refer to primary provider for complete H&P- 54-year-old female past medical history significant for obesity, Graves disease presents for evaluation of blurry vision to her left eye. She states that her symptoms have been intermittent for the last 2 months. his symptoms initially started when she was taking GLP 1 inhibitor. Symptoms improved when she stopped taking the medication. She reports that she followed up with her emissions testing and repair technician and had a normal eye exam. However over the last couple of weeks her symptoms have progressively worsened. She has pain behind the eye and blurry vision to the left eye. She is able to see, there is no black or current like patient, but everything appears blurry to her out of the left eye. No obvious deformity on exam, pupils are equal, round and reactive Medications Administered Discontinued Medications Generic Name Dose Route Start Last Admin Trade Name Freq PRN Reason Stop Dose Admin Tetracaine HCl 1 drop 06/27/24 15:40 06/27/24 15:57 Tetracaine Hcl/Pf 0.5% Oph Huyen 4 Ml Drops EYE-BOTH 06/27/24 15:41 1 drop ONCE ONE Administration Medical Decision Making Medical Decision Making [facility] Narrative: 54 yo female with hx Grave's disease presents with bilateral eye pain and blurriness x multiple months. Reports light sensitivity, squeezing/pressure sensation, L>R, reports seeing Dr. Forte in office with reportedly normal exam. CT scan head unremarkable, no temporal tenderness or headache on exam, intraoccular 14-15 bilateral. TSH and inflammatory markers unremarkable. CN II- XII grossly intact, visual acuity done with glasses on, completed by [employer], largely unremarkable, WNL. Denies amaurosis fugax. Given the chronicity of the symptoms and unremarkable findings during examination, pt. safe to be discharged home with plan to follow up with Dr. Forte outpatient. Differential Diagnosis Differential Diagnoses: The differential diagnosis associated with the presentation includes temporal arteritis, retinal detachment, acute glaucoma, exopthamlos, optic neuritis, diabetic retinopathy Lab Data [facility] Lab Attestation statement: I reviewed the patient's lab results. Minimally elevate CRP is reassuring against any acute inflammatory process. 06/27/24 14:29 06/27/24 14:29 Labs: Lab Results 06/27/24 Range/Units 14:29 WBC 10.4 (4.8-10.8) X10*3/uL RBC 4.62 (4.20-5.50) X10*6/uL Hgb 13.5 (12.0-16.0) g/dl Hct 39.0 (37.0-47.0) % MCV 84.4 (80.0-98.0) fL MCH 29.2 (27.0-33.0) pg MCHC 34.6 (31.0-35.0) g/dl RDW 11.8 (11.0-16.0) % Plt Count 212 (160-400) X10*3/uL MPV 10.4 (9.4-12.3) fL Immature Gran % (Auto) 0.4 (0.0-0.4) % Neut % (Auto) 57.2 (45-73) % Lymph % (Auto) 30.3 (20-40) % Terrell % (Auto) 7.3 (2-11) % Eos % (Auto) 4.1 H (0-4) % Baso % (Auto) 0.7 (0-2) % Lymph # (Auto) 3.1 (1.2-4.9) X10*3/uL Terrell # (Auto) 0.8 (0.1-1.2) X10*3/uL Eos # (Auto) 0.4 (0.0-0.4) X10*3/uL Baso # (Auto) 0.1 (0.0-0.2) X10*3/uL Abs Immat Gran (auto) 0.04 H (0.00-0.03) X10*3/uL Absolute Neuts (auto) 5.9 (2.0-8.3) x10*3/uL Absolute Nucleated RBC 0.000 (0.0-0.012) X10*3/uL Nucleated RBC % (auto) 0.0 (0.0-0.2) /100WBC Sodium 141 (135-145) mmol/L Potassium 4.2 (3.3-5.1) mmol/L Chloride 107 (96-108) mmol/L Carbon Dioxide 26 (22-29) mmol/L Anion Gap 12 (12-20) BUN 17 H (9-16) mg/dL Creatinine 0.78 (0.5-1.4) mg/dL Estim Creat Clear Calc 86.7 Estimated GFR > 60 Random Glucose 90 (60-115) mg/dL Calcium 9.5 D (8.4-10.2) mg/dL Total Bilirubin 0.5 (0.0-1.0) mg/dL AST 19 (5-31) U/L ALT 24 (0-31) U/L Alkaline Phosphatase 92 (39-117) U/L C-Reactive Protein 0.67 H (< or = 0.50) mg/dL Total Protein 7.3 (6.5-8.0) g/dL Albumin 4.4 (3.5-5.0) g/dL TSH 0.26 L (0.32-4.0) uIU/mL Free T4 1.00 (0.71-1.85) ng/dL Independent Interpretation I performed an independent interpretation of an: CT Scan Interpretation: No acute brain bleed or edema, no appreciated xtraoccular mass Radiology Impression Discussion of test interpretation with radiology: I have reviewed the radiologist's reading. Radiologist Impression: EXAMINATION: CT HEAD WITHOUT IV CONTRAST HISTORY: blurry vision, frontal headache. TECHNIQUE: Unenhanced helical CT of the head was performed per standard departmental protocol. Coronal and sagittal reformats of the head were also evaluated. One or more of the following techniques was used for dose reduction: Automated exposure control, adjustment of the mA and/or kV according to patient size, use of iterative reconstruction technique. DLP: 744 mGy-cm COMPARISON: There are no prior studies for comparison. FINDINGS: BRAIN: The brain parenchyma is unremarkable. There is normal garsia/white differentiation. The ventricular system is normal in size and configuration. There is no mass effect or midline shift. No intra- or extra-axial fluid collections are identified. SINUSES: There is partial opacification of the bilateral ethmoid air cells. The mastoid air cells and middle ear cavities are well pneumatized. ORBITS: The visualized orbits are unremarkable. BONES/SOFT TISSUES: The extracranial soft tissues are unremarkable. The calvarium is intact. No suspicious lytic or sclerotic lesions. CT/CT head/brain wo IV con IMPRESSION: Partial opacification of the bilateral ethmoid air cells. Otherwise unremarkable unenhanced head CT. External Record Review External record reviewed: Outpatient record and Prior outpatient labs Prescription Management I considered prescription management with: Pain Medication and Antibiotic Chronic Conditions Patient?s care impacted by: Other (Graves disease) Critical Care Time Critical Care Time Critical Care Time: No Discharge Plan Discharge Clinical Impression: Blurred vision, bilateral Patient Disposition: Home, Self-Care Instructions: Blurred Vision (ED) Additional Instructions: Your CT scan today was unremarkable. Your lab workup was unremarkable. Your thyroid level was normal. Recommend following up with Dr. Jackson, call his office tomorrow. If you develop new or worsening symptoms call 911 or come back to the ER for further evaluation. Prescriptions: No Action oxycodone 5 mg tablet 5 mg PO Q6H PRN (Reason: pain) Qty: 10 0RF ondansetron 4 mg tablet,disintegrating 4 mg PO Q6H PRN (Reason: nausea and vomiting) Qty: 10 0RF ketorolac 10 mg tablet 10 mg PO Q6H PRN (Reason: pain) 5 Days Qty: 20 0RF Rx Instructions: Patient received ketorolac in the emergency room. amoxicillin-pot clavulanate 875-125 mg tablet 1 tab PO BID Qty: 7 0RF tramadol 50 mg tablet 50 mg PO BID PRN (Reason: pain) Qty: 5 0RF quteeaio-iqebiuzoi-VR 3.5-10,000-1 mg/mL-unit/mL-% drops,suspension 4 drp otic (ear) left Q8H Qty: 10 0RF hycicsrg-qwgrkogwn-TE 3.5-10,000-1 mg/mL-unit/mL-% drops,suspension 4 drp otic (ear) left Q8H Qty: 10 0RF tramadol 50 mg tablet 50 mg PO BID PRN (Reason: pain) Qty: 5 0RF amoxicillin-pot clavulanate 875-125 mg tablet 1 tab PO BID Qty: 14 0RF methimazole 10 mg tablet 10 mg PO DAILY metformin 500 mg tablet extended release 24 hr 500 mg PO BID albuterol sulfate 90 mcg/actuation HFA aerosol inhaler inhalation Interventions: ED Discharge Assessment Last Done: 06/27/24 16:49 Discharge Date/Time: 06/27/24 17:01 Print Language: Turkish
[2024-06-27 14:32] LABS: MANUAL DIFF FLAG NO
[2024-06-27 14:33] LABS: Basophils Absolute Auto 0.1 X10*3/uL (0.0-0.2); Basophils Percent Auto 0.7 % (0-2); Eosinophils Absolute Auto 0.4 X10*3/uL (0.0-0.4); Eosinophils Percent Auto 4.1 % (0-4); Hemoglobin 13.5 g/dl (12.0-16.0); Imm Gran Abs Auto 0.04 X10*3/uL (0.00-0.03); Imm Gran Pct Auto 0.4 % (0.0-0.4); Lymphocytes Absolute Auto 3.1 X10*3/uL (1.2-4.9); Lymphocytes Percent Auto 30.3 % (20-40); Mean Corpuscular HGB Conc 34.6 g/dl (31.0-35.0); Mean Corpuscular Hemoglobin 29.2 pg (27.0-33.0); Mean Corpuscular Volume 84.4 fL (80.0-98.0); Mean Platelet Volume 10.4 fL (9.4-12.3); Monocytes Absolute Auto 0.8 X10*3/uL (0.1-1.2); Monocytes Percent Auto 7.3 % (2-11); Neutrophils Absolute Auto 5.9 x10*3/uL (2.0-8.3); Neutrophils Percent Auto 57.2 % (45-73); Platelet Count 212 X10*3/uL (160-400); Red Blood Count 4.62 X10*6/uL (4.20-5.50); Red Cell Distribution Width 11.8 % (11.0-16.0); White Blood Count 10.4 X10*3/uL (4.8-10.8)
[2024-06-27 14:54] LABS: Alanine Aminotransferase 24 U/L (0-31); Albumin Level 4.4 g/dL (3.5-5.0); Alkaline Phosphatase 92 U/L (39-117); Anion Gap 12 (12-20); Aspartate Amino Transferase 19 U/L (5-31); Bilirubin Total 0.5 mg/dL (0.0-1.0); Blood Urea Nitrogen 17 mg/dL (9-16); Calcium 9.5 mg/dL (8.4-10.2); Carbon Dioxide 26 mmol/L (22-29); Chloride 107 mmol/L (96-108); Creatinine Clr Calc Pharmacy 86.7; Estimated Glomerular Filt Rate > 60; Glucose Random 90 mg/dL (60-115); Potassium 4.2 mmol/L (3.3-5.1); Sodium 141 mmol/L (135-145); Total Protein 7.3 g/dL (6.5-8.0)
[2024-06-27 15:05] LABS: TSH reflex Free T4 0.26 uIU/mL (0.32-4.0)
[2024-06-27] MEDS: Tetracaine HCl/PF 0.5% Oph Sol 4 ML DROPS 1 DROP EYE-BOTH (15:57)
[2024-06-27 16:32] LABS: C Reactive Protein 0.67 mg/dL (< or = 0.50)
[2024-06-27 16:49] VITALS: BP 128/72; PULSE 77; RESP 18; TEMP -17.7; TEMP 0; O2SAT 96
[2024-06-27 17:12] LABS: Erythrocyte Sedimentation Rate 7 MM/HR (0-20)
== END 2024-06-27 17:01 | disposition home or self-care (01) ==
PROVIDERS: Physician Assistant; Emergency Provider Emergency Medicine Emergency Medical Services; PCP Internal Medicine
DX: H53.8 Other visual disturbances (principal); E05.00 Thyrotoxicosis with diffuse goiter without thyrotoxic crisis or storm; Z79.899 Other long term (current) drug therapy
CPT/HCPCS: 36415; 70450; 80053; 84439; 84443; 85025; 85652; 86140; 99284

== ENCOUNTER → 2024-06-27 14:20 | Outpatient (BNV) | payer OTHER, SELFPAY | PROVIDERS: PCP Internal Medicine; Visit Provider Radiology Diagnostic Radiology | DX: R91.8 Other nonspecific abnormal finding of lung field (principal) | CPT/HCPCS: 70450 ==